=== PATIENT | female | born 1950 | race Caucasian/White ===

== ENCOUNTER 2021-06-15 08:43 | Inpatient (IN) | payer MEDICARE, OTHER, SELFPAY ==
[2021-06-15] VITALS (12 sets, daily range): BP systolic 129–161; BP diastolic 72–85; PULSE 71–90; RESP 16–24; TEMP 36.6–37; O2SAT 84–100; BMI 28.3; BMI 28.2
--- NOTE | 2021-06-15 09:00 | ECG_ITS ---
APPROVED REPORT Exam: Resting ECG HR:74 bpm ECG Measurements Heart Rate 74 AXES SD 134 P 50 QRSd 78 QRS -12 QT 402 T 13 QTc 446 Conclusion Normal sinus rhythm Low voltage QRS Cannot rule out Inferior infarct, age undetermined Cannot rule out Anterior infarct, age undetermined Abnormal ECG Electronically signed by : Arnie Mobley MD 06/16/2021 09:50:31
--- NOTE | 2021-06-15 09:15 | HMH.EDGENADL ---
ED Disposition Clinical Impression: Pneumonia due to COVID-19 virus, Elevated troponin Respiratory failure with hypoxia Qualifiers: Chronicity: acute Qualified Code(s): J96.01 - Acute respiratory failure with hypoxia Disposition: Admitted As Inpatient Condition on Discharge: Serious Referrals: Provider,Referral, [Primary Care Provider] - - Critical Care Critical Care Time: No Attestation: On 06/15/21, the high probability of a clinically significant, sudden or life threatening deterioration of the following system(s) required my full and direct attention, intervention and personal management. The time I documented below is in addition to time spent performing reported procedures but includes the following listed in this critical care notation. Medical Decision Making - Rafita Inquiry Pt receiving controlled substance: No Vital Signs: 06/15/21 08:44 06/15/21 09:30 06/15/21 10:30 Temperature 98.6 F Temperature Source Oral Pulse Rate 73 88 Pulse Rate [Left Radial] 80 Respiratory Rate 19 21 23 Blood Pressure 142/79 H 129/83 Blood Pressure [Right Arm] 142/78 H Blood Pressure Mean 109 105 Blood Pressure Mean [Right Arm] 99 Blood Pressure Source [Right Arm] Automatic Cuff Blood Pressure Position [Right Arm] Sitting 02 Sat by Pulse Oximetry 84 L 98 98 Oxygen Delivery Method Nasal Cannula Non-Rebreather Oxygen Flow Rate (LPM) 8 12 06/15/21 11:01 Temperature Temperature Source Pulse Rate 81 Pulse Rate [Left Radial] Respiratory Rate 22 Blood Pressure 161/83 H Blood Pressure [Right Arm] Blood Pressure Mean 109 Blood Pressure Mean [Right Arm] Blood Pressure Source [Right Arm] Blood Pressure Position [Right Arm] 02 Sat by Pulse Oximetry 94 L Oxygen Delivery Method Non-Rebreather Oxygen Flow Rate (LPM) 12 - Lab Data Lab Results 06/15/21 09:05: WBC 10.7, RBC 4.52, Hgb 13.6, Hct 41.8, MCV 92.4, MCH 30.1, MCHC 32.6, RDW 13.3, Plt Count 286, MPV 9.2, Neut % (Auto) 91.8 H, Lymph % (Auto) 3.7 L, [place] % (Auto) 4.2, Eos % (Auto) 0.0 L, Baso % (Auto) 0.2, Neut # (Auto) 9.8 H, Lymph # (Auto) 0.4 L, [place] # (Auto) 0.5, Eos # (Auto) 0.0, Baso # (Auto) 0.0, Total Counted 100, Neutrophils % (Manual) 84 H, Band Neutrophils % 3.0, Lymphocytes % (Manual) 7 L, Monocytes % (Manual) 6, Platelet Estimate Normal, RBC Morphology Normal 06/15/21 09:05: Sodium 138, Potassium 3.9, Chloride 104, Carbon Dioxide 31 H, Anion Gap 6.9, BUN 19 H, Creatinine 0.60, Estimated Creat Clear 57, Estimated GFR 99, Est GFR ( Amer) 119, Glucose 109 H, Calcium 8.9, Troponin I 0.11 H, C-Reactive Protein 13.8 H 06/15/21 09:05: Lactate 1.3 06/15/21 09:05: ESR 24 06/15/21 09:05: D-Dimer 4.04 H 06/15/21 09:05: Ferritin 216, Procalcitonin 0.093 06/15/21 09:05: Total Bilirubin 0.5, Direct Bilirubin 0.1, Conjugated Bilirubin 0.0, Indirect Bilirubin 0.4, Unconjugated Bilirubin 0.4, AST 66 H, ALT 71, Alkaline Phosphatase 89, Total Protein 6.1 L, Albumin 3.3 L Result diagrams: 06/15/21 09:05 06/15/21 09:05 Orders (Tests/Meds): ED MEDICATIONS Discontinued Medications Generic Name Dose Route Start Last Admin Trade Name Freq PRN Reason Stop Dose Admin Iopamidol 70 ml 06/15/21 10:26 06/15/21 10:27 Iopamidol-370 (76%);100ml Bottle IV 06/15/21 10:27 70 ml ONCE ONE Administration Sodium Chloride 10 ml 06/15/21 10:26 06/15/21 10:27 Sodium Chloride 0.9% 10ml Syr (Rad Only) IV 06/15/21 10:27 10 ml ONCE ONE Administration ORDERS Category Date Time Status Troponin I Q3H Lab 06/15/21 12:30 Ordered Troponin I Q3H Lab 06/15/21 15:30 Ordered Blood Culture Stat Micro 06/15/21 09:05 Received - Radiology Data #1 Image(s): Chest Image Reviewed: Yes I reviewed the patient's radiology image, Yes I have reviewed radiologist's interpretation PROCEDURE: XR CHEST PORTABLE CLINICAL HISTORY: soa COMPARISON: No exams were available for comparison FINDINGS: The cardiomediastin
--- NOTE | 2021-06-15 09:21 | PC.NURSE ---
Addendum entered by Eugneia Hubbard RN 06/15/21 09:40: PT was changed from 15 L NB to 12 L NB not NC, sat continue on 98 Original Note: Pt arrived on 8 L NC from home sat of 84. Pt placed on wall oxygen at 4 L NC and continued sats of 84, increased to 8 L NC with sats of 88, pt placed on NB at that time, sat increased to 98. Continued on NB for 5 minutes to recover and then changed back to 12 L NC with sats of 98. Pt tolerated well and denies any issues at this time. Family updated about pt status MD at
--- NOTE | 2021-06-15 09:23 | PC.NURSE ---
ANDRAE MORELAND at
--- NOTE | 2021-06-15 09:25 | XR_ITS ---
PROCEDURE: XR CHEST PORTABLE CLINICAL HISTORY: soa COMPARISON: No exams were available for comparison FINDINGS: The cardiomediastinal silhouette and pulmonary vascularity are within normal limits. Multifocal bilateral pneumonia noted along with atelectatic changes in the lower lobes. No obvious effusions No acute bony abnormalities. IMPRESSION: Bilateral pneumonia with atelectatic changes consistent with Covid19 pneumonia the Dictated by: Lenard De Jesus MD 06/15/2021 09:48 Lenard De Jesus MD in [facility] 06/15/2021 09:48
--- NOTE | 2021-06-15 09:27 | PC.NURSE ---
Contacted lab for second blood culture order to draw
--- NOTE | 2021-06-15 09:36 | PC.NURSE ---
rad at BS
[2021-06-15 09:38] LABS: Basophils % 0.2 % (0.1-2.0); Hematocrit 41.8 % (37.0-47.0); Hemoglobin 13.6 g/dL (12.2-16.2); Lymphocytes # 0.4 K/mm3 (0.7-4.5); Lymphocytes % 3.7 % (10-50); Mean Corpuscular HGB Conc 32.6 g/dL (31.8-35.4); Mean Corpuscular Hemoglobin 30.1 pg (27.0-31.2); Mean Corpuscular Volume 92.4 fl (81-99); Mean Platelet Volume 9.2 fl (7.4-10.4); Monocytes # 0.5 K/mm3 (0.1-1.0); Monocytes % 4.2 % (1.7-9.3); Neutrophils # 9.8 K/mm3 (1.8-7.8); Neutrophils % 91.8 % (37.0-80.0); Platelet Count 286 K/mm3 (142-424); Red Blood Count 4.52 M/mm3 (4.20-5.40); Red Cell Distribution Width 13.3 % (11.5-17.5); White Blood Count 10.7 K/mm3 (4.8-10.8)
[2021-06-15 09:39] LABS: MANUAL DIFFERENTIAL MANUAL DIFFERENTIAL (MANUAL DIFF)
[2021-06-15 09:49] LABS: Alanine Aminotransferase 71 U/L (12-78); Albumin Level 3.3 g/dl (3.5-5.0); Alkaline Phosphatase 89 U/L (38-126); Aspartate Amino Transferase 66 U/L (14-36); Bilirubin,Direct 0.1 mg/dl (0.0-0.4); Bilirubin,Indirect 0.4 mg/dL (0.0-0.9); Bilirubin,Total 0.5 mg/dl (0.2-1.3); Bilirubin,Unconjugated 0.4 mg/dL (0.0-1.1); Lactic Acid 1.3 mmol/L (0.7-2.1); Total Protein,Serum 6.1 g/dl (6.3-8.2)
[2021-06-15 09:51] LABS: Anion Gap 6.9 mEq/L (5-15); Blood Urea Nitrogen 19 mg/dl (7-17); Calcium 8.9 mg/dl (8.4-10.2); Carbon Dioxide 31 mmol/L (22.0-30.0); Chloride 104 mmol/L (98-107); Creatinine Clearance Estimated 57 mL/min (50-200); Estimated Glomerular Filt Rate 99 ml/min (>60); GFR (African American) 119 ML/MIN (>60); Glucose 109 mg/dl (74-100); Potassium 3.9 mmoL/L (3.5-5.1); Sodium 138 mmol/L (136-145)
[2021-06-15 09:54] LABS: D-Dimer 4.04 ug/mL (0.0-0.5); Lymphocytes % 7 % (10-50); Monocytes % 6 % (2-9); Neutrophils % 84 % (42-76); Platelet Estimate Normal; RBC Morphology Normal; Total Cells Counted 100
[2021-06-15 09:56] LABS: C-Reactive Protein 13.8 mg/L (0-4)
--- NOTE | 2021-06-15 09:57 | PC.NURSE ---
ER speaking with pts family at this time
[2021-06-15 10:02] LABS: Erythrocyte Sedimentation Rate 24 mm/hr (0-30); Troponin I 0.11 ng/ml (0.00-0.034)
[2021-06-15 10:07] LABS: Procalcitonin 0.093 ng/mL (0.0-2.0)
--- NOTE | 2021-06-15 10:10 | CT_ITS ---
PROCEDURE: CT ANGIO CHEST PE PROTOCOL CLINCIAL INDICATION: covid hypoxia r/o PE COMPARISON: CT SPLUMBWO CT lumbar spine wo con from 01/09/2019 CR XR CHEST PORTABLE from 06/15/2021 TECHNIQUE: IV Contrast: 70ML Isovue 370 Axial images obtained with sagittal and coronal reformats. All CT scans at the facility use one or more dose reduction, viz: automated exposure control, ma/kV adjustment per patient size (including targeted exams where dose is matched to indication, i.e. head), or iterative reconstruction technique. FINDINGS: HEART AND MEDIASTINAL STRUCTURES: No evidence of pulmonary embolus, aortic aneurysm, or aortic dissection. There are few small mediastinal and hilar lymph nodes. LUNGS AND PLEURAL SPACES: Diffuse multifocal bilateral areas of ground-glass density with associated consolidation and atelectatic change consistent with Covid19 pneumonia. No evidence of pneumothorax. Trace bilateral effusions. Airspace disease could easily obscure an underlying nodule. No obvious endobronchial lesion. BONY STRUCTURES: Degenerative changes thoracic spine. UPPER ABDOMEN: Unremarkable. ADDITIONAL FINDINGS: Cortical scarring of the left kidney IMPRESSION: No evidence of pulmonary embolus, aortic aneurysm, or aortic dissection. Multifocal bilateral ground-glass infiltrates with scattered areas of consolidation and atelectasis consistent with Covid19 pneumonia with trace bilateral effusions. Dictated by: Lenard De Jesus MD 06/15/2021 10:42 Lenard De Jesus MD in [facility] 06/15/2021 10:42
--- NOTE | 2021-06-15 10:19 | PC.NURSE ---
called [facility] to retrieve medical records. Left voicemail and faxing medical record sheet.
--- NOTE | 2021-06-15 10:40 | PC.NURSE ---
Medical record forms have been sent to [place]
[2021-06-15 10:53] LABS: Ferritin 216 ng/ml (11.1-264)
--- NOTE | 2021-06-15 10:57 | PC.NURSE ---
has been paged
--- NOTE | 2021-06-15 11:21 | PC.NURSE ---
Attempted to get patient to the bathroom by wheelchair. Patient became short of breath so we transferred back to the bed.
--- NOTE | 2021-06-15 11:43 | PC.NURSE ---
notified care management of admission, spoke with Julia
[2021-06-15 12:03] LABS: Influenza A, PCR Not Detected (NotDetected); Influenza B, PCR Not Detected (NotDetected)
--- NOTE | 2021-06-15 12:13 | PC.NURSE ---
Pt decreased to 10 L NB, pt tolerated well, sat 98
[2021-06-15 12:24] LABS: Coronavirus 19, PCR Detected (NotDetected)
--- NOTE | 2021-06-15 12:34 | PC.NURSE ---
Report attempted to call report, nurse unavailable at this time, Territory Manager will have nurse to call back for report
--- NOTE | 2021-06-15 12:40 | PC.NURSE ---
Report called to Brandy PRASAD
--- NOTE | 2021-06-15 13:45 | P.CONPHA_ITS ---
[facility] Pharmacy VTE Monitoring - Patient Demographics Admission date: 06/15/21 Report Date: 06/15/21 Time: 13:45 Allergies/Adverse Reactions: Patient Allergies No Known Allergies Allergy (Verified 01/09/19 12:13) Height: 1.57 m Weight: 69.967 kg Patient Problems: Current Active Problems Pneumonia due to COVID-19 virus (Acute) Respiratory failure with hypoxia (Acute) Elevated troponin (Acute) - VTE Risk Labs: VTE Related Lab Results Hgb 13.6 g/dL (12.2-16.2) 06/15/21 09:05 Hct 41.8 % (37.0-47.0) 06/15/21 09:05 Plt Count 286 K/mm3 (142-424) 06/15/21 09:05 BUN 19 mg/dl (7-17) H 06/15/21 09:05 Creatinine 0.60 mg/dl (0.52-1.04) 06/15/21 09:05 Estimated Creat Clear 57 mL/min (50-200) 06/15/21 09:05 VTE Score: 1 - Prophylaxis VTE Prophylaxis Ordered?: Yes Types of VTE Prophylaxis: TEDS Knee High, Pharmacological Location of Applied Device: Bilateral Lower Extremeties Pharmacologic Type: Enoxaparin
[2021-06-15 14:01] LABS: Troponin I 0.12 ng/ml (0.00-0.034)
[2021-06-15 16:48] LABS: Troponin I 0.14 ng/ml (0.00-0.034)
--- NOTE | 2021-06-15 18:20 | HMH.HP ---
*Admission Date: 06/15/21 *Chief complaint: covid pneumonia *History of present illness: Patient states that she has Covid pneumonia, diagnosed on Friday at [facility]. She says that she first started getting chest congestion around 06/02/2021. She has a slight cough. She had increasing dyspnea on exertion. She says she was found to be hypoxic. She says she was kept in the emergency room for several hours had an extensive work-up excluding a CT angiogram of her chest. She says they do not have any beds in the hospital and eventually discharged her home on nasal cannula oxygen 3L and steroids. She says that she called her primary care doctor in [place] after she was discharged from [place] emergency room and they told her to go to the emergency department at [facility], but she says she felt pretty good at that time and did not do so. Since then she says that her pulse ox is dropping precipitously whenever she gets up and walks around. Family has increased FiO2 up to 8 L nasal cannula She is not vaccinated against Covid. She is a non-smoker. She has no chronic medical problems and is not chronically on medication. Workup in the ER included imaging studies FINDINGS: The cardiomediastinal silhouette and pulmonary vascularity are within normal limits. Multifocal bilateral pneumonia noted along with atelectatic changes in the lower lobes. No obvious effusions No acute bony abnormalities. IMPRESSION: Bilateral pneumonia with atelectatic changes consistent with Covid19 pneumonia the Dictated by: Lenard De Jesus MD 06/15/2021 09:48 Lenard De Jesus MD in [facility] 06/15/2021 09:48 - CT Data CT Scan: Chest (CTA) Time Received: 10:[address] Reviewed: Yes: I have viewed the radiologist's interpretation Findings Narrative: PROCEDURE: CT ANGIO CHEST PE PROTOCOL CLINCIAL INDICATION: covid hypoxia r/o PE COMPARISON: CT SPLUMBWO CT lumbar spine wo con from 01/09/2019 CR XR CHEST PORTABLE from 06/15/2021 TECHNIQUE: IV Contrast: 70ML Isovue 370 Axial images obtained with sagittal and coronal reformats. All CT scans at the facility use one or more dose reduction, viz: automated exposure control, ma/kV adjustment per patient size (including targeted exams where dose is matched to indication, i.e. head), or iterative reconstruction technique. FINDINGS: HEART AND MEDIASTINAL STRUCTURES: No evidence of pulmonary embolus, aortic aneurysm, or aortic dissection. There are few small mediastinal and hilar lymph nodes. LUNGS AND PLEURAL SPACES: Diffuse multifocal bilateral areas of ground-glass density with associated consolidation and atelectatic change consistent with Covid19 pneumonia. No evidence of pneumothorax. Trace bilateral effusions. Airspace disease could easily obscure an underlying nodule. No obvious endobronchial lesion. BONY STRUCTURES: Degenerative changes thoracic spine. UPPER ABDOMEN: Unremarkable. ADDITIONAL FINDINGS: Cortical scarring of the left kidney IMPRESSION: No evidence of pulmonary embolus, aortic aneurysm, or aortic dissection. Multifocal bilateral ground-glass infiltrates with scattered areas of consolidation and atelectasis consistent with Covid19 pneumonia with trace bilateral effusions. She is admitted for further evaluation and treatment [facility] History Medical History: Denies:: Cancer, Diabetes Mellitus Type 1, Diabetes Mellitus Type 2, MRSA *Have you ever received a pneumonia vaccine?: No *Have you received a flu vaccine this season?: No Other Surgeries: Yes: Hysterectomy-Total Amputation: No Fractures: No - *Social History Last grade of school completed: GED Smoking Status: Never smoker Alcohol Intake: never *Occupational Status:: retired Housing: house Household Members: spouse *Travel in the last 8 weeks: None Family Hx:: Unable to obtain Review of Systems - Constitutional Reports lack of energy, Reports malaise - Eyes
--- NOTE | 2021-06-15 18:22 | PC.NURSE ---
PT IS RESTING IN BED. PT STATES SHE IS STARTING TO FEEL BETTER AND SEEMS TO THINK SHE CAN GO HOME TOMORROW. PT'S DAUGHTER CALLED AND STATED SHE WANTED PT TO BE COVID TESTED DAILY WHILE IN THE HOSPITAL. PT'S DAUGHTER WAS EDUCATED ON THE REASONS OF WHY WE DO NOT TEST DAILY AND WAS TOLD THAT PT COULD BE POSITIVE FOR COVID FOR SEVERAL WEEKS. DAUGHTER STATED SHE IS AWARE OF EVERYTHING AND STILL WAS WANTING HER MOTHER TESTED DAILY (AVICULTURIST NOTIFIED OF DAUGHTER'S REQUEST). SINCE PT HAS ARRIVED TO THE FLOOR SHE STATES THIS PLACE FEELS LIKE A DETENTION AND DOES NOT UNDERSTAND WHY FAMILY CANNOT BE HERE WITH HER. PT HAS BEEN UP AMBULATING TO THE BATHROOM AND IN THE ROOM ON 6 L NC. O2 SATURATION MAINTAINS 95-98% WHILE PT IS RESTING. PT WILL DESAT TO 85-88% WHEN UP AMBULATING. LUNG SOUNDS DIMINISHED WITH BILATERAL CRACKLES. ABDOMEN SOFT WITH SOME MILD LLQ TENDERNESS. VSS. WILL CONTINUE TO MONITOR.
[2021-06-16] VITALS: BP 130/75; PULSE 90; TEMP 36.7; O2SAT 92
[2021-06-16 01:43] VITALS: O2SAT 97
--- NOTE | 2021-06-16 03:07 | PC.NURSE ---
A&OX4. TOLERATING 6LNC WELL. O2 SAT IN UPPER 90S WHILE SLEEPING AND LYING IN BED. PT WILL DE-SAT TO MID 80S UPON AMBULATION BUT QUICKLY RECOVERS. PT DOES HAVE INTERMITTENT DRY COUGH. PT DOES SEEM TO BE VERY ANXIOUS. PRN SLEEPING PILL WAS PROVIDED, TOLERATED WELL. PT HAS BEEN RESTING SINCE ADMINISTRATION. PT DOES WELL WITH STANDBY ASSIST TO BATHROOM. VSS WILL CONTINUE TO MONITOR.
[2021-06-16 05:49] VITALS: BP 130/68; PULSE 75; RESP 16; TEMP 37; O2SAT 95; BMI 29.2
[2021-06-16 07:31] LABS: Alanine Aminotransferase 58 U/L (12-78); Albumin Level 2.9 g/dl (3.5-5.0); Albumin/Globulin Ratio 1.2 (1.1-1.8); Alkaline Phosphatase 89 U/L (38-126); Anion Gap 5.9 mEq/L (5-15); Aspartate Amino Transferase 51 U/L (14-36); Bilirubin,Total 0.4 mg/dl (0.2-1.3); Blood Urea Nitrogen 19 mg/dl (7-17); Calcium 8.2 mg/dl (8.4-10.2); Carbon Dioxide 30 mmol/L (22.0-30.0); Chloride 105 mmol/L (98-107); Creatinine Clearance Estimated 59 mL/min (50-200); Estimated Glomerular Filt Rate 122 ml/min (>60); GFR (African American) 147 ML/MIN (>60); Globulin 2.5 g/dL (1.3-3.2); Glucose 85 mg/dl (74-100); Potassium 3.9 mmoL/L (3.5-5.1); Sodium 137 mmol/L (136-145); Total Protein,Serum 5.4 g/dl (6.3-8.2)
[2021-06-16 08:00] VITALS: BP 131/73; PULSE 82; RESP 20; TEMP 36.7; O2SAT 84; O2SAT 94; O2SAT 99
--- NOTE | 2021-06-16 11:23 | XR_ITS ---
PROCEDURE INFORMATION: Exam: XR Chest Exam date and time: 06/16/2021 11:23 AM Age: 71 years old Clinical indication: Condition or disease; Patient HX: SOA; Covid TECHNIQUE: Imaging protocol: XR of the chest. Views: 1 view. COMPARISON: CR XR CHEST PORTABLE 06/15/2021 9:35 AM FINDINGS: Lungs: diffuse interstitial and alveolar airspace disease left lung greater than right. Pneumonia versus cardiogenic or noncardiogenic edema versus other alveolar filling process. Correlate. Pleural spaces: Unremarkable. No pleural effusion. No pneumothorax. Heart/Mediastinum: Unremarkable. No cardiomegaly. Bones/joints: Unremarkable. IMPRESSION: Diffuse interstitial and alveolar airspace disease left lung greater than right. Pneumonia versus cardiogenic or noncardiogenic edema versus other alveolar filling process. Correlate.
[2021-06-16 12:57] LABS: Chloride 106 mmol/L (98-107); Sodium 139 mmol/L (136-145)
[2021-06-16 12:58] LABS: Potassium 3.9 mmoL/L (3.5-5.1)
[2021-06-16 13:00] LABS: Alanine Aminotransferase 59 U/L (12-78); Albumin/Globulin Ratio 1.2 (1.1-1.8); Alkaline Phosphatase 98 U/L (38-126); Anion Gap 11.9 mEq/L (5-15); Aspartate Amino Transferase 54 U/L (14-36); Bilirubin,Total 0.4 mg/dl (0.2-1.3); Blood Urea Nitrogen 18 mg/dl (7-17); Calcium 8.2 mg/dl (8.4-10.2); Carbon Dioxide 25 mmol/L (22.0-30.0); Creatinine Clearance Estimated 59 mL/min (50-200); Estimated Glomerular Filt Rate 99 ml/min (>60); GFR (African American) 119 ML/MIN (>60); Globulin 2.6 g/dL (1.3-3.2); Glucose 125 mg/dl (74-100); Total Protein,Serum 5.6 g/dl (6.3-8.2)
[2021-06-16 13:01] LABS: Basophils % 0.3 % (0.1-2.0); Eosinophils # 0.1 K/mm3 (0.0-0.4); Eosinophils % 0.9 % (0.1-12.0); Hematocrit 39.4 % (37.0-47.0); Hemoglobin 12.8 g/dL (12.2-16.2); Lymphocytes # 0.3 K/mm3 (0.7-4.5); Mean Corpuscular HGB Conc 32.5 g/dL (31.8-35.4); Mean Corpuscular Volume 92.1 fl (81-99); Mean Platelet Volume 9.5 fl (7.4-10.4); Monocytes # 0.2 K/mm3 (0.1-1.0); Monocytes % 2.6 % (1.7-9.3); Neutrophils # 7.4 K/mm3 (1.8-7.8); Platelet Count 234 K/mm3 (142-424); Red Blood Count 4.28 M/mm3 (4.20-5.40); Red Cell Distribution Width 13.3 % (11.5-17.5)
--- NOTE | 2021-06-16 13:06 | P.PN_ITS ---
Internal Medicine - PN: Subj *Date: 06/16/21 *Time: 13:06 Interval history: Patient is feeling better, no significant turns during the night. 6 L she is 93 to 94%. He does desaturate with exertion. Globally she feels like she is responding, would like to stay another day. She is equipped with oxygen at home, was previously seen at [facility] in [place]. I reviewed her film, ideology report is pending. She has patchy infiltrative process appears to be less dense. Crackles in both mid abdul are also less dense so the patterns consistent. She slept well with the Ambien last night. CTA was negative for pulmonary embolism Exam Vital signs and Labs for Last 24 Hours: Temp Pulse Resp BP Pulse Ox 98.1 F 82 20 131/73 94 L 06/16/21 08:00 06/16/21 08:00 06/16/21 08:00 06/16/21 08:00 06/16/21 08:00 Laboratory Results - last 24 hr 06/15/21 12:47: Troponin I 0.12 H 06/15/21 15:30: Troponin I 0.14 H 06/16/21 06:44: Sodium 137, Potassium 3.9, Chloride 105, Carbon Dioxide 30, Anion Gap 5.9, BUN 19 H, Creatinine 0.50 L, Estimated Creat Clear 59, Estimated GFR 122, Est GFR ( Amer) 147 D, Glucose 85 D, Calcium 8.2 L, Total Bilirubin 0.4, AST 51 H, ALT 58, Alkaline Phosphatase 89, Total Protein 5.4 L, Albumin 2.9 L D, Globulin 2.5, Albumin/Globulin Ratio 1.2 06/16/21 12:29: Sodium 139, Potassium 3.9, Chloride 106 I & O for Last 24 hours: Intake & Output 06/13/21 06/14/21 06/15/21 06/16/21 23:59 23:59 23:59 23:59 Intake Total 240 / 240 Balance 240 / 240 Weight 154 lb 4 oz 159 lb - Constitutional no acute distress - *Routine HEENT Exam Head: Present: normocephalic Eye: Present: EOMI, PERRL ENT: Present: mucous membranes moist - *Routine Neck Exam Present: supple. Absent: lymphadenopathy - *Routine Respiratory Exam Present: crackles. Absent: accessory muscle use, rhonchi, wheezes, diminished air movement - *Routine Cardiovascular Exam Present: RRR - *Routine Abdominal Exam Present: soft, normoactive bowel sounds. Absent: tenderness - *Routine Extremities Exam Absent: cyanosis, clubbing, edema - *Routine Skin Exam Present: warm. Absent: rash - *Routine Neurological Exam Present: alert, oriented X3 Assessment and Plan (1) Elevated troponin Status: Acute Category: Medical Code(s): R77.8 - Other specified abnormalities of plasma proteins (2) Pneumonia due to COVID-19 virus Status: Acute Category: Medical Code(s): U07.1 - COVID-19; J12.82 - Pneumonia due to coronavirus disease 2019 (3) Respiratory failure with hypoxia Status: Acute Qualifiers: Chronicity: acute Qualified Code(s): J96.01 - Acute respiratory failure with hypoxia Category: Medical Code(s): J96.91 - Respiratory failure, unspecified with hypoxia - Assessment and plan all Dx Assessment and Plan for all problems:: Continue current regimen. Will wean down O2 today. Chart for further orders
[2021-06-16 13:12] LABS: MANUAL DIFFERENTIAL MANUAL DIFFERENTIAL (MANUAL DIFF)
[2021-06-16 13:23] LABS: Lymphocytes % 15 % (10-50); Monocytes % 4 % (2-9); Neutrophils % 81 % (42-76); Platelet Estimate Normal; RBC Morphology Normal; Total Cells Counted 100
[2021-06-16 16:00] VITALS: BP 134/88; PULSE 90; RESP 18; TEMP 37; O2SAT 93
[2021-06-16 20:00] VITALS: BP 143/83; PULSE 76; RESP 19; TEMP 36.7; O2SAT 94
--- NOTE | 2021-06-16 20:19 | PC.NURSE ---
Pt very anxious to leave and states she plans to tomorrow. Dr. stover aware of this. Have educated pt of need for staying in hospital at this time. Have educated pt that there are not allowed to be visitors with covid. Have encouraged pt to prone and have educated on use of IS, which is at bedside and pt has been using. Pt is on 5 L NC at this time and sats are 95% at this time.
[2021-06-17] VITALS: BP 139/80; PULSE 77; RESP 18; TEMP 36.7; O2SAT 91
--- NOTE | 2021-06-17 01:33 | PC.NURSE ---
Pts O2 titrated back up to 6L at this time.
[2021-06-17 04:00] VITALS: BP 150/76; PULSE 76; RESP 18; TEMP 37.3; O2SAT 93
--- NOTE | 2021-06-17 04:13 | PC.NURSE ---
Respiratory paged due to patient desating to low 80's on 6L NC.
[2021-06-17 04:42] VITALS: BMI 29.2
--- NOTE | 2021-06-17 05:37 | PC.NURSE ---
Respiratory came and placed pt on 15L high flow oxygen O2 at 97% at this time.
[2021-06-17 07:10] LABS: Alanine Aminotransferase 47 U/L (12-78); Albumin Level 2.7 g/dl (3.5-5.0); Alkaline Phosphatase 95 U/L (38-126); Anion Gap 5.7 mEq/L (5-15); Aspartate Amino Transferase 39 U/L (14-36); Bilirubin,Total 0.4 mg/dl (0.2-1.3); Blood Urea Nitrogen 15 mg/dl (7-17); Carbon Dioxide 28 mmol/L (22.0-30.0); Chloride 104 mmol/L (98-107); Creatinine Clearance Estimated 59 mL/min (50-200); Estimated Glomerular Filt Rate 99 ml/min (>60); GFR (African American) 119 ML/MIN (>60); Globulin 2.6 g/dL (1.3-3.2); Glucose 80 mg/dl (74-100); Potassium 3.7 mmoL/L (3.5-5.1); Sodium 134 mmol/L (136-145); Total Protein,Serum 5.3 g/dl (6.3-8.2)
[2021-06-17 08:00] VITALS: BP 148/68; PULSE 105; RESP 17; TEMP 37.2; O2SAT 93
--- NOTE | 2021-06-17 09:17 | PC.NURSE ---
spoke with provider MD Viola regarding patient's want to leave against medical advice stating she has oxygen at home and does not want to be here. RN spoke with patient's family regarding treatment plan- ambulating as tolerated, aggressively attempting to wean oxygen as tolerated, use and education of incentive spirometer to prevent atelectasis as well as worsening pneumonia. RN entered patients room and discussed her want to leave, educated patient on leaving AMA and how Viola and RN believe the patient is not an appropriate candidate for discharge to home due to oxygen requirements. Patient questioned whether it would be safe to go home , RN instructed patient that it is unadvisable for her to leave as well as unsafe. RN requested for patient to ambulate in room and sit into the chair, patient repeatedly refused. Patient refused to lay prone. Patient refused to use incentive spirometer. Level of care escalated to MD.
--- NOTE | 2021-06-17 10:43 | XR_ITS ---
PROCEDURE INFORMATION: Exam: XR Chest Exam date and time: 06/17/2021 10:43 AM Age: 71 years old Clinical indication: Shortness of breath and other: Covid positive TECHNIQUE: Imaging protocol: XR of the chest. Views: 1 view. COMPARISON: CR XR CHEST PORTABLE 06/16/2021 11:38 AM FINDINGS: Lungs: Similar bilateral airspace opacities. Pleural spaces: Unremarkable. No pleural effusion. No pneumothorax. Heart/Mediastinum: Unremarkable. No cardiomegaly. Bones/joints: Unremarkable. IMPRESSION: Similar appearance of multilobar pneumonia.
--- NOTE | 2021-06-17 10:49 | INFXCTL.NOTE ---
Patient continues to be noncompliant with treatment. Patient is being rounded on hourly. RN request with each entry for patient to ambulate, patient continues to refuse despite education of benefits. RN requests for patient to continue use of incentive spirometer. Patient refuses to maintain IV access, RN stated she would give patient a break and would attempt to gain new access so that patient can receive medications needed for her medical recovery. Patient educated on benefits of laying prone, education on repositioning was reinforced
[2021-06-17 12:00] VITALS: BP 167/87; PULSE 82; RESP 18; TEMP 36.6; O2SAT 91
--- NOTE | 2021-06-17 12:13 | HMH.ACPN2 ---
Internal Medicine - PN: Subj *Date: 06/17/21 *Time: 12:13 Interval history: Spoke to nursing staff and respiratory. Desaturated to chris of 84 pct Varying now 84-94 pct 02 requirements anastacio to 15 lpm, now back to 12 CXR from today reviewed. Changes c/w covid pneumonia and w/o signif change. Continues on azith/roceph/olumiant/remdesivir/dex BC=0 growth Has not been compliant with proning or getting out of bed despite instruction from the nursing staff. Exam Vital signs and Labs for Last 24 Hours: Temp Pulse Resp BP Pulse Ox 99.0 F 105 H 17 148/68 H 93 L 06/17/21 08:00 06/17/21 08:00 06/17/21 08:00 06/17/21 08:00 06/17/21 08:00 Laboratory Results - last 24 hr 06/16/21 12:29: WBC 8.0 D, RBC 4.28, Hgb 12.8, Hct 39.4, MCV 92.1, MCH 30.0, MCHC 32.5, RDW 13.3, Plt Count 234, MPV 9.5, Neut % (Auto) 93.0 H, Lymph % (Auto) 3.0 L, [place] % (Auto) 2.6, Eos % (Auto) 0.9, Baso % (Auto) 0.3, Neut # (Auto) 7.4, Lymph # (Auto) 0.3 L, [place] # (Auto) 0.2, Eos # (Auto) 0.1, Baso # (Auto) 0.0, Total Counted 100, Neutrophils % (Manual) 81 H, Lymphocytes % (Manual) 15, Monocytes % (Manual) 4, Platelet Estimate Normal, RBC Morphology Normal 06/16/21 12:29: Sodium 139, Potassium 3.9, Chloride 106, Carbon Dioxide 25, Anion Gap 11.9, BUN 18 H, Creatinine 0.60, Estimated Creat Clear 59, Estimated GFR 99, Est GFR ( Amer) 119, Glucose 125 H D, Calcium 8.2 L, Total Bilirubin 0.4, AST 54 H, ALT 59, Alkaline Phosphatase 98, Total Protein 5.6 L, Albumin 3.0 L, Globulin 2.6, Albumin/Globulin Ratio 1.2 06/17/21 06:44: Sodium 134 L, Potassium 3.7, Chloride 104, Carbon Dioxide 28, Anion Gap 5.7, BUN 15, Creatinine 0.60, Estimated Creat Clear 59, Estimated GFR 99, Est GFR ( Amer) 119, Glucose 80 D, Calcium 8.0 L, Total Bilirubin 0.4, AST 39 H D, ALT 47, Alkaline Phosphatase 95, Total Protein 5.3 L, Albumin 2.7 L, Globulin 2.6, Albumin/Globulin Ratio 1.0 L I & O for Last 24 hours: Intake & Output 06/14/21 06/15/21 06/16/21 06/17/21 23:59 23:59 23:59 23:59 Intake Total 480 / 480 Output Total 670 / 670 Balance -190 / -190 Weight 154 lb 4 oz 159 lb 159 lb Microbiology Reports for the Last 24 Hours: Microbiology 06/15/21 09:05 Blood Blood Culture - Preliminary NO GROWTH AFTER 48 HOURS 06/15/21 09:41 Blood Blood Culture - Preliminary NO GROWTH AFTER 48 HOURS 06/16/21 15:52 Sputum - Expectorated Sputum Gram Stain - Final 06/16/21 15:52 Sputum - Expectorated Sputum Sputum Culture - Preliminary - Constitutional no acute distress, agitated - *Routine HEENT Exam Head: Present: normocephalic Eye: Present: EOMI, PERRL ENT: Present: mucous membranes moist - *Routine Neck Exam Present: supple. Absent: lymphadenopathy - *Routine Respiratory Exam Present: crackles. Absent: accessory muscle use, respiratory distress - *Routine Cardiovascular Exam Present: RRR - *Routine Abdominal Exam Present: soft, normoactive bowel sounds. Absent: tenderness - *Routine Extremities Exam Absent: cyanosis, clubbing, edema - *Routine Skin Exam Present: warm. Absent: rash - *Routine Neurological Exam Present: alert, oriented X3 Assessment and Plan (1) Elevated troponin Status: Acute Category: Medical Code(s): R77.8 - Other specified abnormalities of plasma proteins (2) Pneumonia due to COVID-19 virus Status: Acute Category: Medical Code(s): U07.1 - COVID-19; J12.82 - Pneumonia due to coronavirus disease 2019 (3) Respiratory failure with hypoxia Status: Acute Qualifiers: Chronicity: acute Qualified Code(s): J96.01 - Acute respiratory failure with hypoxia Category: Medical Code(s): J96.91 - Respiratory failure, unspecified with hypoxia - Assessment and plan all Dx Assessment and Plan for all problems:: continue current regimen will increase 02 delivery as indicated
[2021-06-17 16:00] VITALS: BP 130/66; PULSE 81; RESP 16; TEMP 37.1; O2SAT 91
[2021-06-17 20:00] VITALS: BP 130/74; PULSE 81; RESP 17; TEMP 36.7; O2SAT 90
[2021-06-18] VITALS (10 sets, daily range): BP systolic 112–150; BP diastolic 54–76; PULSE 66–89; RESP 16–24; TEMP 36.4–37.1; O2SAT 89–97; BMI 29.2
--- NOTE | 2021-06-18 06:00 | XR_ITS ---
PROCEDURE INFORMATION: Exam: XR Chest Exam date and time: 06/18/2021 6:00 AM Age: 71 years old Clinical indication: Shortness of breath and other: Covid TECHNIQUE: Imaging protocol: XR of the chest. Views: 1 view. COMPARISON: CR XR CHEST PORTABLE 06/17/2021 11:05 AM FINDINGS: Lungs: Patchy bilateral airspace disease is noted more prominent on the left. Pleural spaces: Unremarkable. No pleural effusion. No pneumothorax. Heart/Mediastinum: Unremarkable. No cardiomegaly. Bones/joints: Unremarkable. IMPRESSION: Patchy bilateral airspace disease more prominent on the left not significantly changed.
[2021-06-18 07:30] LABS: Alanine Aminotransferase 41 U/L (12-78); Albumin Level 2.7 g/dl (3.5-5.0); Albumin/Globulin Ratio 1.1 (1.1-1.8); Alkaline Phosphatase 82 U/L (38-126); Anion Gap 5.9 mEq/L (5-15); Aspartate Amino Transferase 45 U/L (14-36); Bilirubin,Total 1.2 mg/dl (0.2-1.3); Blood Urea Nitrogen 19 mg/dl (7-17); Calcium 8.1 mg/dl (8.4-10.2); Carbon Dioxide 27 mmol/L (22.0-30.0); Chloride 104 mmol/L (98-107); Creatinine Clearance Estimated 59 mL/min (50-200); Estimated Glomerular Filt Rate 122 ml/min (>60); GFR (African American) 147 ML/MIN (>60); Globulin 2.5 g/dL (1.3-3.2); Glucose 93 mg/dl (74-100); Potassium 3.9 mmoL/L (3.5-5.1); Sodium 133 mmol/L (136-145); Total Protein,Serum 5.2 g/dl (6.3-8.2)
--- NOTE | 2021-06-18 08:38 | CA_ITS ---
APPROVED REPORT EXAM: Comprehensive 2D, Doppler, and color-flow Echocardiogram Director Supply Chain: Minoo Lemons RDCS Ht: 5 ft 8 in Wt: 158lbs BSA: 1.85 BP: 148/68 mmHg Indications: ELEVATED TROP, COVID PNEUMONIA,ACUTE RESP FAILURE M-Mode Dimensions RVDd 1.81 cm (0.9-2.6) LA Diam 3.58 cm (1.9-4.0) LVDd 4.81 cm (3.5-5.7) Ao Diam 3.17 cm (2.0-3.7) LVDs 3.34 cm (3.5-5.7) IVSd 0.53 cm (0.6-1.1) PWd 0.62 cm (0.6-1.1) EF (Teich) 58.00% FS 30.60% EDV (Teich) 108.00 mL ESV (Teich) 45.40 mL LV Diastology E Decel Time 147.00 (160-240 msec) E/A Ratio 0.9 MED E' 8.30 (< 7 cm/sec) E'/MED E' Ratio 6.29 (>14) LAT E' 9.90 (<10 cm/sec) E/LAT E' Ratio 5.27 (>14) Mitral Valve MV E Max Frandy. 52.00 (40-130 cm/s) MV A Velocity 61.00 (40-130 cm/s) E/A Ratio 0.85 MV Decel. Time 147.00 (160-240 ms) MV PHT 43.00 ms Tricuspid Valve TR P. Velocity 332.00 cm/s RAP Estimate 10.00 mmHg RVSP 54.00 mmHg Left Ventricle Left atrium is moderately enlarged, left ventricle is normal size, mild concentric left ventricular hypertrophy, visually estimated ejection fraction 55% with no regional wall motion abnormality, grade 1 diastolic dysfunction seen without tissue Doppler evidence of raise left atrial pressure. Right Ventricle Right atrium and right ventricle are qualitatively moderately enlarged with normal contractility. Aortic Valve Aortic valve is minimally thickened and fibrosed, there is no aortic stenosis or aortic insufficiency. Mitral Valve Mitral valve grossly normal, there is trace mitral regurgitation. Tricuspid Valve Tricuspid valve is grossly normal, there is moderate tricuspid regurgitation, calculated right ventricular systolic pressure is 54 mmHg. Pulmonic Valve Pulmonic valve is poorly visualized. Great Vessels Aortic root is normal size. Inferior vena cava is normal size with normal inspiratory collapse. Pericardium No significant pericardial effusion noted. Conclusion 1. Biatrial enlargement, normal left ventricular size, mild concentric left ventricular hypertrophy, visually estimated ejection fraction 55% with no regional wall motion abnormality, grade 1 diastolic dysfunction seen without tissue Doppler evidence of raise left atrial pressure. 2. Enlarged right ventricle with normal contractility. 3. Trace mitral and moderate tricuspid regurgitation, calculated right ventricular systolic pressure 54 mmHg. 4. No significant pericardial effusion noted. 5. Inferior vena cava is normal size with normal inspiratory collapse. Electronically signed by : Guy Schafer MD 06/18/2021 10:12:33
--- NOTE | 2021-06-18 09:46 | P.PN_ITS ---
Internal Medicine - PN: Subj *Date: 06/18/21 *Time: 09:15 Interval history: pt laying in bed states she is feeling well. Exam Vital signs and Labs for Last 24 Hours: Temp Pulse Resp BP Pulse Ox 97.9 F 82 24 124/67 90 L 06/18/21 08:10 06/18/21 08:10 06/18/21 08:10 06/18/21 08:10 06/18/21 08:10 Laboratory Results - last 24 hr 06/18/21 06:25: Sodium 133 L, Potassium 3.9, Chloride 104, Carbon Dioxide 27, Anion Gap 5.9, BUN 19 H D, Creatinine 0.50 L, Estimated Creat Clear 59, Estimated GFR 122, Est GFR ( Amer) 147 D, Glucose 93, Calcium 8.1 L, Total Bilirubin 1.2, AST 45 H, ALT 41, Alkaline Phosphatase 82, Total Protein 5.2 L, Albumin 2.7 L, Globulin 2.5, Albumin/Globulin Ratio 1.1 I & O for Last 24 hours: Intake & Output 06/15/21 06/16/21 06/17/21 06/18/21 11:59 11:59 11:59 11:59 Intake Total 240 / 240 720 / 720 720 / 720 Output Total 1070 / 1070 600 / 600 Balance 240 / 240 -350 / -350 120 / 120 Weight 155 lb 159 lb 159 lb 158 lb 11.725 oz Microbiology Reports for the Last 24 Hours: Microbiology 06/15/21 09:05 Blood Blood Culture - Preliminary NO GROWTH AFTER 48 HOURS 06/15/21 09:41 Blood Blood Culture - Preliminary NO GROWTH AFTER 48 HOURS 06/16/21 15:52 Sputum - Expectorated Sputum Gram Stain - Final 06/16/21 15:52 Sputum - Expectorated Sputum Sputum Culture - Preliminary - Constitutional no acute distress - *Routine HEENT Exam Head: Present: normocephalic Eye: Present: PERRL ENT: Present: mucous membranes moist - *Routine Neck Exam Present: supple. Absent: lymphadenopathy - *Routine Respiratory Exam Present: decreased breath sounds, rhonchi - *Routine Cardiovascular Exam Present: RRR - *Routine Abdominal Exam Present: soft, normoactive bowel sounds. Absent: tenderness - *Routine Extremities Exam Absent: cyanosis, clubbing, edema - *Routine Skin Exam Present: warm. Absent: rash - *Routine Neurological Exam Present: alert, oriented X3 Assessment and Plan (1) Elevated troponin Status: Acute Category: Medical Code(s): R77.8 - Other specified abnormalities of plasma proteins (2) Pneumonia due to COVID-19 virus Status: Acute Category: Medical Code(s): U07.1 - COVID-19; J12.82 - Pneu monia due to coronavirus disease 2019 (3) Respiratory failure with hypoxia Status: Acute Qualifiers: Chronicity: acute Qualified Code(s): J96.01 - Acute respiratory failure with hypoxia Category: Medical Code(s): J96.91 - Respiratory failure, unspecified with hypoxia - Assessment and plan all Dx Assessment and Plan for all problems:: rounded with dr stover all orders per dr stover consult cardiology- elevated trop pulm consult
--- NOTE | 2021-06-18 11:01 | HMH.CNCARD ---
History of Present Illness Consult date: 06/18/21 Requesting physician: Tomi Rod Consult reason: shortness of breath Chief complaint: Covid and elevated troponins History of present illness: 71-year-old female admitted to [facility] on 06/15/2021 with Covid PNA. Patient is under Covid precautions. Patient states a few days ago she was admitted to [facility] and was diagnosed with Covid at that time. States she had been feeling well for the past few days until New '[facility] [place]. Patient states she began to have worsening shortness of breath accompanied with productive cough. Patient states [facility] told her to go to [facility] where she could be admitted due to her Covid. Patient states on her traveling to [facility], she began to feel worse with shortness?breath and therefore she felt she needed to come to the emergency room. Patient denies any history of coronary disease. Cardiology was consulted due to elevated troponins x2. Patient was also noted to have an elevated D-dimer. CTA of the chest revealed no evidence of pulmonary emboli or aortic aneurysm or dissection. CTA of the chest did reveal multifocal bilateral groundglass infiltrates and scattered areas of consolidation consistent with COVID-19 pneumonia with trace bilateral effusions. Patient is requiring oxygen at this time. Patient denies chest pain, tightness or pressure. Patient states her shortness of breath is slightly better. Patient is a non-smoker. Patient states she does have history of hypertension. Patient denies any further echo history. Patient denies palpitations or dizziness. Patient does deny fevers. Patient denies swelling of the lower extremities. We will obtain echocardiogram to assess LV function and valve status. Will defer further cardiac testing at this time. Elevated troponins may be caused by ischemic demand due to Covid. Please notify cardiology of any changes in patient status. Echocardiogram reveals EF 55% with no regional wall motion abnormality, grade 1 diastolic dysfunction. Trace MR and moderate TR noted. Vital signs are stable. court monitor reveals sinus rhythm with no ectopy with a heart rate of 76 bpm. CTA of Chest:IMPRESSION: No evidence of pulmonary embolus, aortic aneurysm, or aortic dissection. Multifocal bilateral ground-glass infiltrates with scattered areas of consolidation and atelectasis consistent with Covid19 pneumonia with trace bilateral effusions. Echo:Conclusion 1. Biatrial enlargement, normal left ventricular size, mild concentric left ventricular hypertrophy, visually estimated ejection fraction 55% with no regional wall motion abnormality, grade 1 diastolic dysfunction seen without tissue Doppler evidence of raise left atrial pressure. 2. Enlarged right ventricle with normal contractility. 3. Trace mitral and moderate tricuspid regurgitation, calculated right ventricular systolic pressure 54 mmHg. 4. No significant pericardial effusion noted. 5. Inferior vena cava is normal size with normal inspiratory collapse. [facility] History I have reviewed the patient's past medical history: Yes Medical History: Denies:: Cancer, Diabetes Mellitus Type 1, Diabetes Mellitus Type 2, MRSA *Have you ever received a pneumonia vaccine?: No *Have you received a flu vaccine this season?: No Other Surgeries: Yes: Hysterectomy-Total Amputation: No Fractures: No - *Social History Last grade of school completed: GED Smoking Status: Never smoker Alcohol Intake: never *Occupational Status:: retired Housing: house Household Members: spouse *Travel in the last 8 weeks: None Family Hx:: Unable to obtain Meds Home Medications Medication Instructions Recorded Confirmed Type No Known Home Medications 06/15/21 06/15/21 History Allergies Allergy/AdvReac Type Severity Reaction Status Date / Time No Known Allergies Allergy V
--- NOTE | 2021-06-18 11:32 | HMH.PULMCON ---
*Admission Date: 06/15/21 *Reason for consult:: Acute hypoxic respiratory failure, COVID-19 pneumonia *History of present illness: Ms. Crisostomo is a 76-year-old female never smoker, no prior respiratory complaints, not yet vaccinated for COVID-19 pneumonia presented to the hospital with worsening respiratory status and found to be having COVID-19 pneumonia and pulmonary was called for further management. [facility] History Medical History: Denies:: Cancer, Diabetes Mellitus Type 1, Diabetes Mellitus Type 2, MRSA *Have you ever received a pneumonia vaccine?: No *Have you received a flu vaccine this season?: No Other Surgeries: Yes: Hysterectomy-Total Amputation: No Fractures: No - *Social History Last grade of school completed: GED Smoking Status: Never smoker Alcohol Intake: never *Occupational Status:: retired Housing: house Household Members: spouse *Travel in the last 8 weeks: None Family Hx:: Unable to obtain ROS - Cons Reports anorexia, Reports body ache(s), Denies chills - ENT Denies bleeding gums - Card Reports shortness of breath, Reports shortness of breath with activity - Resp Respiratory: Reports shortness of breath, Reports chest congestion, Reports cough, Reports dyspnea on exertion, Denies excessive phlegm production, Reports cough with sputum production - GI Gastrointestingal: Denies: abdominal pain - [place] Musculoskeletal: Denies small joint pain in the hands - Psych Denies thoughts of hurting/killing others, Denies thoughts of hurting/killing yourself Meds Home Medications Medication Instructions Recorded Confirmed Type No Known Home Medications 06/15/21 06/15/21 History Allergies Allergy/AdvReac Type Severity Reaction Status Date / Time No Known Allergies Allergy Verified 01/09/19 12:13 Exam - Constitutional Constitutional:: Present: no acute distress, comfortable - HENMT Exam HENMT: Present: normocephalic, atraumatic - Eye Exam Eyes:: Present: normal appearance both eyes and related structures - Neck Exam Neck:: Present: normal visual inspection - Respiratory Exam Respiratory:: Present: able to speak in complete sentences, no respiratory distress, rales. Absent: accessory muscle use, wheezing - Cardiovascular Exam Cardiac:: Present: S1, S2 - GI Exam GI:: Present: soft, no hepatosplenomegaly - Skin Exam Skin: Present: warm, no rash - Neurological Exam Neurological: Present: alert, awake, normal cognition - Extremities Exam Extremities: Present: no cyanosis, no clubbing, no edema Internal Medicine - CN: Reslt - Labs CBC & Chem 7: 06/16/21 12:29 06/18/21 06:25 Labs: BMP 06/18/21 06:25 Sodium 133 L Potassium 3.9 Chloride 104 Carbon Dioxide 27 BUN 19 H D Creatinine 0.50 L Glucose 93 Calcium 8.1 L Liver Function 06/18/21 Range/Units 06:25 Total Bilirubin 1.2 (0.2-1.3) mg/dl AST 45 H (14-36) U/L ALT 41 (12-78) U/L Alkaline Phosphatase 82 (38-126) U/L Albumin 2.7 L (3.5-5.0) g/dl Assessment and Plan (1) Elevated troponin Status: Acute Category: Medical Code(s): R77.8 - Other specified abnormalities of plasma proteins (2) Pneumonia due to COVID-19 virus Status: Acute Category: Medical Code(s): U07.1 - COVID-19; J12.82 - Pneumonia due to coronavirus disease 2019 (3) Respiratory failure with hypoxia Status: Acute Qualifiers: Chronicity: acute Qualified Code(s): J96.01 - Acute respiratory failure with hypoxia Category: Medical Code(s): J96.91 - Respiratory failure, unspecified with hypoxia - Assessment and plan all Dx Assessment and Plan for all problems:: #Acute hypoxic respiratory failure: #COVID-19 pneumonia: Ms. Crisostomo is a 76-year-old female never smoker, no prior respiratory complaints, not yet vaccinated for COVID-19 pneumonia presented to the hospital with worsening respiratory status and found to be having COVID-19 pneumonia and pulmonary was called for furthe
--- NOTE | 2021-06-18 14:13 | PC.NURSE ---
At 1400 respiratory told patient she needed to prone. Patient agreed
[2021-06-19] VITALS (7 sets, daily range): BP systolic 99–151; BP diastolic 54–91; PULSE 69–84; RESP 16–20; TEMP 36.5–37.1; O2SAT 91–97; BMI 28.4
--- NOTE | 2021-06-19 03:47 | PC.NURSE ---
Addendum entered by Tiffanie Ritter RN 06/19/21 06:18: Patient requested to leave her bed high in the air to be able to see out the window, bed alarm was set for patient's safety. Original Note: Patient has been cooperative with staff. Patient has slept prone thus far in this RN's shift. Patient was turned down to 7LNC at 0330, patient currently maintaining oxygen saturation <90%. Patient is in good spirits.
[2021-06-19 06:30] LABS: Basophils % 0.2 % (0.1-2.0); Eosinophils % 0.2 % (0.1-12.0); Hematocrit 35.5 % (37.0-47.0); Hemoglobin 11.8 g/dL (12.2-16.2); Lymphocytes # 0.4 K/mm3 (0.7-4.5); Lymphocytes % 4.8 % (10-50); Mean Corpuscular HGB Conc 33.3 g/dL (31.8-35.4); Mean Corpuscular Hemoglobin 30.2 pg (27.0-31.2); Mean Corpuscular Volume 90.5 fl (81-99); Mean Platelet Volume 9.6 fl (7.4-10.4); Monocytes # 0.3 K/mm3 (0.1-1.0); Neutrophils # 7.6 K/mm3 (1.8-7.8); Neutrophils % 90.8 % (37.0-80.0); Platelet Count 160 K/mm3 (142-424); Red Blood Count 3.92 M/mm3 (4.20-5.40); Red Cell Distribution Width 13.9 % (11.5-17.5); White Blood Count 8.4 K/mm3 (4.8-10.8)
[2021-06-19 07:07] LABS: Alanine Aminotransferase 32 U/L (12-78); Albumin Level 2.5 g/dl (3.5-5.0); Albumin/Globulin Ratio 1.1 (1.1-1.8); Alkaline Phosphatase 73 U/L (38-126); Anion Gap 6.1 mEq/L (5-15); Aspartate Amino Transferase 29 U/L (14-36); Bilirubin,Total 0.5 mg/dl (0.2-1.3); Blood Urea Nitrogen 19 mg/dl (7-17); Calcium 8.1 mg/dl (8.4-10.2); Carbon Dioxide 29 mmol/L (22.0-30.0); Chloride 104 mmol/L (98-107); Creatinine Clearance Estimated 57 mL/min (50-200); Estimated Glomerular Filt Rate 99 ml/min (>60); GFR (African American) 119 ML/MIN (>60); Globulin 2.3 g/dL (1.3-3.2); Glucose 103 mg/dl (74-100); Potassium 4.1 mmoL/L (3.5-5.1); Sodium 135 mmol/L (136-145); Total Protein,Serum 4.8 g/dl (6.3-8.2)
[2021-06-19 07:09] LABS: MANUAL DIFFERENTIAL MANUAL DIFFERENTIAL (MANUAL DIFF)
[2021-06-19 07:10] LABS: C-Reactive Protein 30.8 mg/L (0-4)
[2021-06-19 08:20] LABS: Lymphocytes % 4 % (10-50); Monocytes % 2 % (2-9); Neutrophils % 94 % (42-76); Platelet Estimate Normal; Total Cells Counted 100
[2021-06-19 08:21] LABS: Poikilocytosis 2+
--- NOTE | 2021-06-19 09:14 | HMH.PULMPN ---
Internal Medicine - PN: Subj *Date: 06/19/21 *Time: 11:23 Interval history: No acute respiratory vents overnight. Patient admits slight improvement in her symptoms. She admits compliance with proning protocol. Exam - Constitutional Constitutional:: Present: no acute distress, comfortable - HENMT Exam HENMT: Present: normocephalic, atraumatic - Eye Exam Eyes:: Present: normal appearance both eyes and related structures - Neck Exam Neck:: Present: normal visual inspection - Respiratory Exam Respiratory:: Present: able to speak in complete sentences, no respiratory distress, rales. Absent: wheezing - Cardiovascular Exam Cardiac:: Present: S1, S2 - GI Exam GI:: Present: soft, no hepatosplenomegaly - Skin Exam Skin: Present: warm, no rash - Neurological Exam Neurological: Present: alert, awake, normal cognition - Extremities Exam Extremities: Present: no cyanosis, no clubbing, no edema Assessment and Plan (1) Elevated troponin Status: Acute Category: Medical Code(s): R77.8 - Other specified abnormalities of plasma proteins (2) Pneumonia due to COVID-19 virus Status: Acute Category: Medical Code(s): U07.1 - COVID-19; J12.82 - Pneumonia due to coronavirus disease 2019 (3) Respiratory failure with hypoxia Status: Acute Qualifiers: Chronicity: acute Qualified Code(s): J96.01 - Acute respiratory failure with hypoxia Category: Medical Code(s): J96.91 - Respiratory failure, unspecified with hypoxia - Assessment and plan all Dx Assessment and Plan for all problems:: #Acute hypoxic respiratory failure: #COVID-19 pneumonia: Ms. Crisostomo is a 76-year-old female never smoker, no prior respiratory complaints, not yet vaccinated for COVID-19 pneumonia presented to the hospital with worsening respiratory status and found to be having COVID-19 pneumonia and pulmonary was called for further management. D-dimer elevated at 4.04. CTA on admission bilateral patchy airspace disease, no evidence of pulmonary embolism. CRP elevated at 13.8. Patient was initiated on ceftriaxone and azithromycin along with remdesivir, dexamethasone and baricitinib. Interval update: Respiratory status improving. Echocardiogram EF of 55% with grade 1 LV diastolic dysfunction. She admits compliance with proning protocol. Saturating 96 to 97% on 8 L nasal cannula, weaned to 6 L. Plan: -Continue nasal cannula can supplementation to maintain O2 saturation goal of 88% and above, wean to 6 L nasal cannula this morning, continue to wean as tolerated. -COntinue proning protocol. -Continue ceftriaxone and azithromycin for 5 days. -Continue remdesivir for 5 days, dexamethasone for 10 days and baricitinib for 14 days. -Advair 250 BID -Follow with cardiology recommendations #Thank you for involving pulmonary in this patient care. We will continue to follow
--- NOTE | 2021-06-19 10:01 | HMH.ACPN2 ---
Internal Medicine - PN: Subj *Date: 06/19/21 *Time: 10:01 Exam Vital signs and Labs for Last 24 Hours: Temp Pulse Resp BP Pulse Ox 97.7 F 81 16 101/69 L 91 L 06/19/21 08:49 06/19/21 08:49 06/19/21 08:49 06/19/21 08:49 06/19/21 08:49 Laboratory Results - last 24 hr 06/19/21 05:40: WBC 8.4, RBC 3.92 L, Hgb 11.8 L, Hct 35.5 L, MCV 90.5, MCH 30.2, MCHC 33.3, RDW 13.9, Plt Count 160 D, MPV 9.6, Neut % (Auto) 90.8 H, Lymph % (Auto) 4.8 L, Heard % (Auto) 4.0, Eos % (Auto) 0.2, Baso % (Auto) 0.2, Neut # (Auto) 7.6, Lymph # (Auto) 0.4 L, Heard # (Auto) 0.3, Eos # (Auto) 0.0, Baso # (Auto) 0.0, Total Counted 100, Neutrophils % (Manual) 94 H, Lymphocytes % (Manual) 4 L, Monocytes % (Manual) 2, Platelet Estimate Normal, Poikilocytosis 2+ 06/19/21 05:40: C-Reactive Protein 30.8 H 06/19/21 05:40: Sodium 135 L, Potassium 4.1, Chloride 104, Carbon Dioxide 29, Anion Gap 6.1, BUN 19 H, Creatinine 0.60, Estimated Creat Clear 57, Estimated GFR 99, Est GFR ( Amer) 119, Glucose 103 H, Calcium 8.1 L, Total Bilirubin 0.5, AST 29 D, ALT 32, Alkaline Phosphatase 73, Total Protein 4.8 L, Albumin 2.5 L, Globulin 2.3, Albumin/Globulin Ratio 1.1 I & O for Last 24 hours: Intake & Output 06/16/21 06/17/21 06/18/21 06/19/21 23:59 23:59 23:59 23:59 Intake Total 480 / 480 1200 / 1200 720 / 720 Output Total 670 / 670 400 / 1000 600 / 600 Balance -190 / -190 800 / 200 120 / 120 Weight 159 lb 159 lb 158 lb 11.725 oz 154 lb 6.4 oz Microbiology Reports for the Last 24 Hours: Microbiology 06/16/21 15:52 Sputum - Expectorated Sputum Gram Stain - Final 06/16/21 15:52 Sputum - Expectorated Sputum Sputum Culture - Final Normal Respiratory Leonarda - Constitutional no acute distress - *Routine HEENT Exam Head: Present: normocephalic Eye: Present: EOMI ENT: Present: mucous membranes moist - *Routine Neck Exam Present: trachea midline. Absent: tracheal deviation - *Routine Respiratory Exam Present: crackles. Absent: accessory muscle use - *Routine Cardiovascular Exam Present: RRR - *Routine Abdominal Exam Present: soft, normoactive bowel sounds. Absent: firm - *Routine Extremities Exam Present: full ROM, pulses intact. Absent: cyanosis, edema - *Routine Skin Exam Present: intact, dry. Absent: cyanosis, erythema - *Routine Neurological Exam Present: alert, oriented X3. Absent: altered mental status - Routine Psychiatric Exam Present: normal affect, normal thought process, cooperative Assessment and Plan (1) Elevated troponin Status: Acute Category: Medical Code(s): R77.8 - Other specified abnormalities of plasma proteins (2) Pneumonia due to COVID-19 virus Status: Acute Category: Medical Code(s): U07.1 - COVID-19; J12.82 - Pneumonia due to coronavirus disease 2019 (3) Respiratory failure with hypoxia Status: Acute Qualifiers: Chronicity: acute Qualified Code(s): J96.01 - Acute respiratory failure with hypoxia Category: Medical Code(s): J96.91 - Respiratory failure, unspecified with hypoxia - Assessment and plan all Dx Assessment and Plan for all problems:: Rounded with Dr. Rod, all orders per Dr. Rod: 1. Continue to wean oxygen as titrated 2. Pulmonology following
--- NOTE | 2021-06-19 14:32 | P.PN_ITS ---
Internal Medicine - PN: Subj *Date: 06/19/21 *Time: 14:32 Exam Vital signs and Labs for Last 24 Hours: Temp Pulse Resp BP Pulse Ox 98.0 F 77 16 122/80 95 06/19/21 11:48 06/19/21 11:48 06/19/21 11:48 06/19/21 11:48 06/19/21 11:48 Laboratory Results - last 24 hr 06/19/21 05:40: WBC 8.4, RBC 3.92 L, Hgb 11.8 L, Hct 35.5 L, MCV 90.5, MCH 30.2, MCHC 33.3, RDW 13.9, Plt Count 160 D, MPV 9.6, Neut % (Auto) 90.8 H, Lymph % (Auto) 4.8 L, Schleicher % (Auto) 4.0, Eos % (Auto) 0.2, Baso % (Auto) 0.2, Neut # (Auto) 7.6, Lymph # (Auto) 0.4 L, Schleicher # (Auto) 0.3, Eos # (Auto) 0.0, Baso # (Auto) 0.0, Total Counted 100, Neutrophils % (Manual) 94 H, Lymphocytes % (Manual) 4 L, Monocytes % (Manual) 2, Platelet Estimate Normal, Poikilocytosis 2+ 06/19/21 05:40: C-Reactive Protein 30.8 H 06/19/21 05:40: Sodium 135 L, Potassium 4.1, Chloride 104, Carbon Dioxide 29, Anion Gap 6.1, BUN 19 H, Creatinine 0.60, Estimated Creat Clear 57, Estimated GFR 99, Est GFR ( Amer) 119, Glucose 103 H, Calcium 8.1 L, Total Bilirubin 0.5, AST 29 D, ALT 32, Alkaline Phosphatase 73, Total Protein 4.8 L, Albumin 2.5 L, Globulin 2.3, Albumin/Globulin Ratio 1.1 I & O for Last 24 hours: Intake & Output 06/16/21 06/17/21 06/18/21 06/19/21 23:59 23:59 23:59 23:59 Intake Total 480 / 480 1200 / 1200 720 / 720 240 / 240 Output Total 670 / 670 400 / 1000 600 / 600 Balance -190 / -190 800 / 200 120 / 120 240 / 240 Weight 72.121 kg 72.121 kg 72 kg 70.035 kg Microbiology Reports for the Last 24 Hours: Microbiology 06/16/21 15:52 Sputum - Expectorated Sputum Gram Stain - Final 06/16/21 15:52 Sputum - Expectorated Sputum Sputum Culture - Final Normal Respiratory Leonarda Assessment and Plan (1) Elevated troponin Status: Acute Category: Medical Code(s): R77.8 - Other specified abnorma lities of plasma proteins (2) Pneumonia due to COVID-19 virus Status: Acute Category: Medical Code(s): U07.1 - COVID-19; J12.82 - Pneumonia due to coronavirus disease 2019 (3) Respiratory failure with hypoxia Status: Acute Qualifiers: Chronicity: acute Qualified Code(s): J96.01 - Acute respiratory failure with hypoxia Category: Medical Code(s): J96.91 - Respiratory failure, unspecified with hypoxia The patient's infection will respond to the chosen ABx?: Yes Is the patient receiving the right drug, dose, and route?: Yes Could a more targeted ABx be ordered?: No
--- NOTE | 2021-06-19 17:42 | PC.NURSE ---
Pt is alert and oriented x4. She has been pleasant and cooperative this shift. Lungs are clear t/o. She is currently on 8L NC w/O2 sats in the mid 90's. When in the bed she raises it up high to see out the window. Bed alarm set and pt instructed to use call light for assistance. Appetite is good. Family has brought in lots of food and snacks for pt to eat. IV to RFA infiltrated. Warm cloth and ice pack both offered to pt but she refused. New IV placed to LFA. It is patent and has good blood return. She hs reported no complaints.
[2021-06-20] VITALS (8 sets, daily range): BP systolic 97–131; BP diastolic 56–80; PULSE 60–85; RESP 17–21; TEMP 36.5–36.8; O2SAT 91–99; BMI 28.2
[2021-06-20 07:30] LABS: Basophils % 0.5 % (0.1-2.0); Eosinophils % 0.1 % (0.1-12.0); Hematocrit 37.6 % (37.0-47.0); Hemoglobin 12.5 g/dL (12.2-16.2); Lymphocytes # 0.4 K/mm3 (0.7-4.5); Lymphocytes % 5.1 % (10-50); Mean Corpuscular HGB Conc 33.3 g/dL (31.8-35.4); Mean Corpuscular Hemoglobin 30.2 pg (27.0-31.2); Mean Corpuscular Volume 90.8 fl (81-99); Mean Platelet Volume 9.9 fl (7.4-10.4); Monocytes # 0.5 K/mm3 (0.1-1.0); Neutrophils # 6.8 K/mm3 (1.8-7.8); Neutrophils % 88.3 % (37.0-80.0); Platelet Count 209 K/mm3 (142-424); Red Blood Count 4.14 M/mm3 (4.20-5.40); Red Cell Distribution Width 13.8 % (11.5-17.5); White Blood Count 7.7 K/mm3 (4.8-10.8)
[2021-06-20 07:52] LABS: MANUAL DIFFERENTIAL MANUAL DIFFERENTIAL (MANUAL DIFF)
[2021-06-20 07:56] LABS: Alanine Aminotransferase 29 U/L (12-78); Albumin Level 2.8 g/dl (3.5-5.0); Albumin/Globulin Ratio 1.2 (1.1-1.8); Alkaline Phosphatase 78 U/L (38-126); Aspartate Amino Transferase 27 U/L (14-36); Bilirubin,Total 0.6 mg/dl (0.2-1.3); Blood Urea Nitrogen 21 mg/dl (7-17); Calcium 8.4 mg/dl (8.4-10.2); Carbon Dioxide 32 mmol/L (22.0-30.0); Chloride 99 mmol/L (98-107); Creatinine Clearance Estimated 57 mL/min (50-200); Estimated Glomerular Filt Rate 122 ml/min (>60); GFR (African American) 147 ML/MIN (>60); Globulin 2.3 g/dL (1.3-3.2); Glucose 117 mg/dl (74-100); Sodium 133 mmol/L (136-145); Total Protein,Serum 5.1 g/dl (6.3-8.2)
[2021-06-20 08:51] LABS: Lymphocytes % 10 % (10-50); Monocytes % 3 % (2-9); Neutrophils % 87 % (42-76); Platelet Estimate Normal; Total Cells Counted 100
[2021-06-20 08:52] LABS: Poikilocytosis 2+
[2021-06-20 08:53] LABS: Acanthocytes 1+
--- NOTE | 2021-06-20 09:21 | HMH.PULMPN ---
Internal Medicine - PN: Subj *Date: 06/20/21 *Time: 11:38 Interval history: No acute respiratory events overnight. Patient was placed back on 8 L nasal cannula. Exam - Constitutional Constitutional:: Present: no acute distress, comfortable - HENMT Exam HENMT: Present: normocephalic, moist mucous membranes - Eye Exam Eyes:: Present: normal appearance both eyes and related structures - Neck Exam Neck:: Present: normal visual inspection - Respiratory Exam Respiratory:: Present: able to speak in complete sentences, respiratory distress, rales. Absent: wheezing - Cardiovascular Exam Cardiac:: Present: S1, S2 - GI Exam GI:: Present: soft - Skin Exam Skin: Present: warm, no rash - Neurological Exam Neurological: Present: alert, awake, normal cognition - Extremities Exam Extremities: Present: no cyanosis, no clubbing, no edema Assessment and Plan (1) Elevated troponin Status: Acute Category: Medical Code(s): R77.8 - Other specified abnormalities of plasma proteins (2) Pneumonia due to COVID-19 virus Status: Acute Category: Medical Code(s): U07.1 - COVID-19; J12.82 - Pneumonia due to coronavirus disease 2019 (3) Respiratory failure with hypoxia Status: Acute Qualifiers: Chronicity: acute Qualified Code(s): J96.01 - Acute respiratory failure with hypoxia Category: Medical Code(s): J96.91 - Respiratory failure, unspecified with hypoxia - Assessment and plan all Dx Assessment and Plan for all problems:: #Acute hypoxic respiratory failure: #COVID-19 pneumonia: Ms. Crisostomo is a 76-year-old female never smoker, no prior respiratory complaints, not yet vaccinated for COVID-19 pneumonia presented to the hospital with worsening respiratory status and found to be having COVID-19 pneumonia and pulmonary was called for further management. D-dimer elevated at 4.04. CTA on admission bilateral patchy airspace disease, no evidence of pulmonary embolism. CRP elevated at 13.8. Patient receiving ceftriaxone and azithromycin along with remdesivir, dexamethasone and baricitinib. Echocardiogram EF of 55% with grade 1 LV diastolic dysfunction. Blood cultures no growth. Sputum normal respiratory samir. Patient respiratory status has been relatively stable since admission with no significant improvement. She continued to remain in 6 to 8 L nasal to maintain O2 saturations at 88% and above. She admits compliance with proning protocol now. We will continue current therapy. Plan: -Continue nasal cannula can supplementation to maintain O2 saturation goal of 88% and above -COntinue proning protocol. -Continue ceftriaxone and azithromycin for 5 days. -Continue remdesivir for 5 days, dexamethasone for 10 days and baricitinib for 14 days. -Advair 250 BID -Follow with cardiology recommendations #Thank you for involving pulmonary in this patient care. We will continue to follow
--- NOTE | 2021-06-20 12:31 | PC.NURSE ---
Call received from Assistant Portfolio Manager, stated patient's daughter called regarding concerns about no visitors and patient's increasing anxiety. Daughter requested a family member be allowed to stay w patient. Assistant Portfolio Manager explained to daughter that she would refer to CNO for an exception to current visitation policy. Chart reviewed per myself. Contacted daughter Kathy via telephone to discuss request and patient's status. Daughter Kathy stated my mom is very anxious about being alone. We have been staying in the parking lot through the night so she can see us through the window. Daughter stated that patient's son had just been diagnosed with colon cancer and was starting chemotherapy on Friday and patient was very nervous about that. Explained in detail to Kathy that I would allow an exception of 1 visitor to remain with the patient for duration of stay. Explained in detail that they cannot trade out in shifts, and the one visitor must remain at the bedside with a mask in use. Explained in detail that non-compliance would result in forefeiture of visitation exception. Daughter stated understanding. Nursing staff notified, Assistant Portfolio Manager notified, Case Management notified, and IP RN notified. Will follow up as needed. Akil Max RN, O
--- NOTE | 2021-06-20 13:52 | PC.NURSE ---
Patient like to raise the bed to full height and she was informed by this srna that it was not very safe and soria to do so but i was told by another RN jordan that the patient likes to raise it that high her self to see the view outside. shanon QUAN informed me that he felt safer with the patient having the bed alarm put on
--- NOTE | 2021-06-20 13:55 | PC.NURSE ---
PT RAISES BED PER SELF WHEN STAFF IS NOT IN ROOM. THIS RN AND OTHER STAFF MEMBERS HAVE EDUCATED PT THAT THIS IS A SAFETY RISK AND THAT IT INCREASES HER RISK FOR FALLS IF SHE WERE TO GET UP. PT STATED UNDERSTANDING. SHE WAS ALSO EDUCATED ON THE IMPORTANCE OF USING HER CALL LIGHT IF SHE NEEDED TO GET OUT OF BED. SHE STATED HER UNDERSTANDING. CALL LIGHT WITHIN REACH. BED ALARM IN USE AT THIS TIME.
--- NOTE | 2021-06-20 15:26 | HMH.ACPN2 ---
Internal Medicine - PN: Subj *Date: 06/20/21 *Time: 08:53 Interval history: 71-year-old female patient resting in bed quietly current oxygenation 91% on 8 L high flow nasal cannula. She reports she is feeling better and denies any shortness of breath. Long discussion with patient regarding she is still not well enough to be discharged yet and cannot be discharged on on 8 L nasal cannula the maximum before liters nasal cannula. Long discussion with patient regarding COVID-19 effects on the body, how it affects each individual differently, and possible metal color outcomes. Exam Vital signs and Labs for Last 24 Hours: Temp Pulse Resp BP Pulse Ox 97.7 F 85 17 97/62 L 96 06/20/21 11:42 06/20/21 11:42 06/20/21 11:42 06/20/21 11:42 06/20/21 11:42 Laboratory Results - last 24 hr 06/20/21 06:29: WBC 7.7, RBC 4.14 L, Hgb 12.5, Hct 37.6, MCV 90.8, MCH 30.2, MCHC 33.3, RDW 13.8, Plt Count 209 D, MPV 9.9, Neut % (Auto) 88.3 H, Lymph % (Auto) 5.1 L, Trigg % (Auto) 6.0, Eos % (Auto) 0.1, Baso % (Auto) 0.5, Neut # (Auto) 6.8, Lymph # (Auto) 0.4 L, Trigg # (Auto) 0.5, Eos # (Auto) 0.0, Baso # (Auto) 0.0, Total Counted 100, Neutrophils % (Manual) 87 H, Lymphocytes % (Manual) 10, Monocytes % (Manual) 3, Platelet Estimate Normal, Poikilocytosis 2+, Acanthocytes (Spur) 1+ 06/20/21 06:29: Sodium 133 L, Potassium 4.0, Chloride 99, Carbon Dioxide 32 H, Anion Gap 6.0, BUN 21 H, Creatinine 0.50 L, Estimated Creat Clear 57, Estimated GFR 122, Est GFR ( Amer) 147 D, Glucose 117 H, Calcium 8.4, Total Bilirubin 0.6, AST 27, ALT 29, Alkaline Phosphatase 78, Total Protein 5.1 L, Albumin 2.8 L D, Globulin 2.3, Albumin/Globulin Ratio 1.2 I & O for Last 24 hours: Intake & Output 06/17/21 06/18/21 06/19/21 06/20/21 23:59 23:59 23:59 23:59 Intake Total 1200 / 1200 720 / 720 480 / 600 600 / 600 Output Total 400 / 1000 600 / 600 300 / 300 350 / 350 Balance 800 / 200 120 / 120 180 / 300 250 / 250 Weight 159 lb 158 lb 11.725 oz 154 lb 6.4 oz 153 lb 8 oz Microbiology Reports for the Last 24 Hours: Microbiology 06/15/21 09:05 Blood Blood Culture - Final NO GROWTH AFTER 5 DAYS 06/15/21 09:41 Blood Blood Culture - Final NO GROWTH AFTER 5 DAYS - Constitutional no acute distress - *Routine HEENT Exam Head: Present: normocephalic Eye: Present: EOMI ENT: Present: mucous membranes moist - *Routine Neck Exam Present: trachea midline. Absent: tracheal deviation - *Routine Respiratory Exam Present: crackles. Absent: accessory muscle use - *Routine Cardiovascular Exam Present: RRR - *Routine Abdominal Exam Present: soft, normoactive bowel sounds. Absent: tenderness, firm - *Routine Extremities Exam Present: full ROM, pulses intact. Absent: cyanosis, clubbing - *Routine Skin Exam Present: intact, dry. Absent: cyanosis, erythema - *Routine Neurological Exam Present: alert, oriented X3. Absent: motor deficit - Routine Psychiatric Exam Present: normal affect, normal thought process. Absent: auditory hallucinations Assessment and Plan (1) Elevated troponin Status: Acute Category: Medical Code(s): R77.8 - Other specified abnormalities of plasma proteins (2) Pneumonia due to COVID-19 virus Status: Acute Category: Medical Code(s): U07.1 - COVID-19; J12.82 - Pneumonia due to coronavirus disease 2019 (3) Respiratory failure with hypoxia Status: Acute Qualifiers: Chronicity: acute Qualified Code(s): J96.01 - Acute respiratory failure with hypoxia Category: Medical Code(s): J96.91 - Respiratory failure, unspecified with hypoxia - Assessment and plan all Dx Assessment and Plan for all problems:: Rounded with Dr. Tejada, all orders per Dr. Tejada: 1. Cont to wean oxygen as tolerated 2. Pulmonology consultintg
--- NOTE | 2021-06-20 18:53 | PC.NURSE ---
PT IS AOX4, ABLE TO MAKE NEEDS KNOWN TO STAFF, SHE HAS BEEN VERY ANXIOUS THIS SHIFT. IS VERY CONCERNED WITH CARE PLAN. HAS REQUIRED 8LNC FOR OR SUPPORT. SHE HAS PRONED FOR 6 GOURS THIS SHIFT AND THE REST OF THE SHIFT SAT UPRIGHT ON THE EDGE OF THE BED.
[2021-06-21] VITALS (8 sets, daily range): BP systolic 98–132; BP diastolic 60–87; PULSE 65–87; RESP 18–20; TEMP 36.4–36.7; O2SAT 94–97; BMI 27.8
--- NOTE | 2021-06-21 06:00 | XR_ITS ---
PROCEDURE INFORMATION: Exam: XR Chest Exam date and time: 06/21/2021 6:00 AM Age: 71 years old Clinical indication: Shortness of breath; Additional info: Covid TECHNIQUE: Imaging protocol: XR of the chest. Views: 1 view. COMPARISON: CR XR CHEST PORTABLE 06/18/2021 5:50 AM FINDINGS: Lungs: Emphysematous change and bilateral interstitial/airspace disease in the setting of reported COVID-19 pneumonitis. The extent of airspace disease has mildly worsened. Pleural spaces: No pleural effusion. Heart/Mediastinum: No cardiomegaly. Bones/joints: Osteopenia and degenerative change. IMPRESSION: Emphysematous change and bilateral interstitial/airspace disease in the setting of reported COVID-19 pneumonitis. The extent of airspace disease has mildly worsened.
[2021-06-21 06:56] LABS: Alanine Aminotransferase 26 U/L (12-78); Albumin Level 2.9 g/dl (3.5-5.0); Albumin/Globulin Ratio 1.3 (1.1-1.8); Alkaline Phosphatase 69 U/L (38-126); Anion Gap 7.3 mEq/L (5-15); Aspartate Amino Transferase 22 U/L (14-36); Bilirubin,Total 0.4 mg/dl (0.2-1.3); Blood Urea Nitrogen 26 mg/dl (7-17); Calcium 8.5 mg/dl (8.4-10.2); Carbon Dioxide 31 mmol/L (22.0-30.0); Chloride 99 mmol/L (98-107); Creatinine Clearance Estimated 56 mL/min (50-200); Estimated Glomerular Filt Rate 99 ml/min (>60); GFR (African American) 119 ML/MIN (>60); Globulin 2.2 g/dL (1.3-3.2); Glucose 132 mg/dl (74-100); Potassium 4.3 mmoL/L (3.5-5.1); Sodium 133 mmol/L (136-145); Total Protein,Serum 5.1 g/dl (6.3-8.2)
[2021-06-21 07:16] LABS: Basophils % 0.2 % (0.1-2.0); Hemoglobin 12.4 g/dL (12.2-16.2); Lymphocytes # 0.5 K/mm3 (0.7-4.5); Mean Corpuscular HGB Conc 32.7 g/dL (31.8-35.4); Mean Corpuscular Hemoglobin 30.1 pg (27.0-31.2); Mean Corpuscular Volume 92.2 fl (81-99); Mean Platelet Volume 9.9 fl (7.4-10.4); Monocytes # 0.5 K/mm3 (0.1-1.0); Monocytes % 5.5 % (1.7-9.3); Neutrophils # 7.2 K/mm3 (1.8-7.8); Neutrophils % 88.4 % (37.0-80.0); Platelet Count 250 K/mm3 (142-424); Red Blood Count 4.12 M/mm3 (4.20-5.40); Red Cell Distribution Width 14.1 % (11.5-17.5); White Blood Count 8.2 K/mm3 (4.8-10.8)
[2021-06-21 07:21] LABS: MANUAL DIFFERENTIAL MANUAL DIFFERENTIAL (MANUAL DIFF)
[2021-06-21 08:49] LABS: Lymphocytes % 10 % (10-50); Monocytes % 3 % (2-9); Neutrophils % 87 % (42-76); Platelet Estimate Normal; Total Cells Counted 100
[2021-06-21 08:51] LABS: Poikilocytosis 1+; Schistocytes 1+
--- NOTE | 2021-06-21 09:31 | HMH.ACPN2 ---
Internal Medicine - PN: Subj *Date: 06/21/21 *Time: 09:43 Interval history: 71-year-old female patient resting quietly in bed, she reports she is feeling better today. Oxygenation decreased from 8 L to 7 L high flow nasal cannula. is staying in room at present, patient is able to have conversation without shortness of breath. Another long discussion regarding COVID-19 and her medical status. Exam Vital signs and Labs for Last 24 Hours: Temp Pulse Resp BP Pulse Ox 97.6 F 78 20 122/60 97 06/21/21 08:00 06/21/21 08:00 06/21/21 08:00 06/21/21 08:00 06/21/21 08:00 Laboratory Results - last 24 hr 06/21/21 05:20: WBC 8.2, RBC 4.12 L, Hgb 12.4, Hct 38.0, MCV 92.2, MCH 30.1, MCHC 32.7, RDW 14.1, Plt Count 250, MPV 9.9, Neut % (Auto) 88.4 H, Lymph % (Auto) 6.0 L, Winston % (Auto) 5.5, Eos % (Auto) 0.0 L, Baso % (Auto) 0.2, Neut # (Auto) 7.2, Lymph # (Auto) 0.5 L, Winston # (Auto) 0.5, Eos # (Auto) 0.0, Baso # (Auto) 0.0, Total Counted 100, Neutrophils % (Manual) 87 H, Lymphocytes % (Manual) 10, Monocytes % (Manual) 3, Platelet Estimate Normal, Poikilocytosis 1+, Schistocytes 1+ 06/21/21 05:20: Sodium 133 L, Potassium 4.3, Chloride 99, Carbon Dioxide 31 H, Anion Gap 7.3, BUN 26 H, Creatinine 0.60, Estimated Creat Clear 56, Estimated GFR 99, Est GFR ( Amer) 119, Glucose 132 H, Calcium 8.5, Total Bilirubin 0.4, AST 22, ALT 26, Alkaline Phosphatase 69, Total Protein 5.1 L, Albumin 2.9 L, Globulin 2.2, Albumin/Globulin Ratio 1.3 I & O for Last 24 hours: Intake & Output 06/18/21 06/19/21 06/20/21 06/21/21 23:59 23:59 23:59 23:59 Intake Total 720 / 720 480 / 600 840 / 840 Output Total 600 / 600 300 / 300 350 / 350 0 / 0 Balance 120 / 120 180 / 300 490 / 490 0 / 0 Weight 158 lb 11.725 oz 154 lb 6.4 oz 153 lb 8 oz 151 lb 4.8 oz Microbiology Reports for the Last 24 Hours: Microbiology 06/15/21 09:05 Blood Blood Culture - Final NO GROWTH AFTER 5 DAYS 06/15/21 09:41 Blood Blood Culture - Final NO GROWTH AFTER 5 DAYS - Constitutional no acute distress - *Routine HEENT Exam Head: Present: normocephalic Eye: Present: EOMI ENT: Present: mucous membranes moist - *Routine Neck Exam Present: trachea midline. Absent: tracheal deviation - *Routine Respiratory Exam Present: crackles. Absent: accessory muscle use - *Routine Cardiovascular Exam Present: RRR - *Routine Abdominal Exam Present: soft, normoactive bowel sounds. Absent: tenderness, firm - *Routine Extremities Exam Present: full ROM, pulses intact. Absent: cyanosis, clubbing, edema, calf tenderness - *Routine Skin Exam Present: intact, dry. Absent: cyanosis, erythema - *Routine Neurological Exam Present: alert, oriented X3. Absent: motor deficit - Routine Psychiatric Exam Present: normal affect, normal thought process. Absent: visual hallucinations Assessment and Plan (1) Elevated troponin Status: Acute Category: Medical Code(s): R77.8 - Other specified abnormalities of plasma proteins (2) Pneumonia due to COVID-19 virus Status: Acute Category: Medical Code(s): U07.1 - COVID-19; J12.82 - Pneumonia due to coronavirus disease 2019 (3) Respiratory failure with hypoxia Status: Acute Qualifiers: Chronicity: acute Qualified Code(s): J96.01 - Acute respiratory failure with hypoxia Category: Medical Code(s): J96.91 - Respiratory failure, unspecified with hypoxia - Assessment and plan all Dx Assessment and Plan for all problems:: Rounded with Dr. Rod, all orders per Dr. Rod: 1. Continue to wean O2 as tolerated 2. Pulmonology following 3. Has been staying in room
--- NOTE | 2021-06-21 14:41 | P.PN_ITS ---
Internal Medicine - PN: Subj *Date: 06/21/21 *Time: 14:41 Interval history: No acute respiratory vents overnight. Patient admits improvement in her symptoms. Exam - Constitutional Constitutional:: Present: no acute distress, comfortable - HENMT Exam HENMT: Present: normocephalic, atraumatic - Eye Exam Eyes:: Present: normal appearance both eyes and related structures - Neck Exam Neck:: Present: normal visual inspection - Respiratory Exam Respiratory:: Present: able to speak in complete sentences, no respiratory distress, rales. Absent: crackles, wheezing - Cardiovascular Exam Cardiac:: Present: S1, S2 - GI Exam GI:: Present: soft, no hepatosplenomegaly - Skin Exam Skin: Present: warm, no rash - Neurological Exam Neurological: Present: alert, awake, normal cognition - Extremities Exam Extremities: Present: no cyanosis, no clubbing, no edema Assessment and Plan (1) Elevated troponin Status: Acute Category: Medical Code(s): R77.8 - Other specified abnormali ties of plasma proteins (2) Pneumonia due to COVID-19 virus Status: Acute Category: Medical Code(s): U07.1 - COVID-19; J12.82 - Pneumonia due to coronavirus disease 2019 (3) Respiratory failure with hypoxia Status: Acute Qualifiers: Chronicity: acute Qualified Code(s): J96.01 - Acute respiratory failure with hypoxia Category: Medical Code(s): J96.91 - Respiratory failure, unspecified with hypoxia - Assessment and plan all Dx Assessment and Plan for all problems:: #Acute hypoxic respiratory failure: #COVID-19 pneumonia: Ms. Crisostomo is a 76-year-old female never smoker, no prior respiratory complaints, not yet vaccinated for COVID-19 pneumonia presented to the hospital with worsening respiratory status and found to be having COVID-19 pneumonia and pulmonary was called for further management. D-dimer elevated at 4.04. CTA on admission bilateral patchy airspace disease, no evidence of pulmonary embolism. CRP elevated at 13.8. Patient receiving ceftriaxone and azithromycin along with remdesivir, dexamethasone and baricitinib. Echocardiogram EF of 55% with grade 1 LV diastolic dysfunction. Blood cultures no growth. Sputum normal respiratory samir. Interval update: Patient respiratory slightly improved from yesterday. She was saturating 97% and weaned to 5 L nasal cannula. She continued to be compliant with her proning protocol. Plan: -Continue nasal cannula can supplementation to maintain O2 saturation goal of 88% and above -COntinue proning protocol. -Completed 7-day course of Ceftriaxone Day 4 of 5 of azithromycin. -Continue remdesivir for 10 days, dexamethasone for 10 days and baricitinib for 14 days. -Advair 250 BID -Follow with cardiology recommendations #Thank you for involving pulmonary in this patient care. We will continue to follow
[2021-06-22] VITALS: BP 109/56; PULSE 64; RESP 18; TEMP 37; O2SAT 99
[2021-06-22 04:00] VITALS: BP 117/76; PULSE 64; RESP 18; TEMP 36.9; O2SAT 96
[2021-06-22 04:52] VITALS: BMI 27.8
[2021-06-22 06:20] VITALS: O2SAT 98
[2021-06-22 07:17] LABS: Alanine Aminotransferase 27 U/L (12-78); Albumin Level 2.7 g/dl (3.5-5.0); Albumin/Globulin Ratio 1.3 (1.1-1.8); Alkaline Phosphatase 66 U/L (38-126); Aspartate Amino Transferase 21 U/L (14-36); Bilirubin,Total 0.3 mg/dl (0.2-1.3); Blood Urea Nitrogen 26 mg/dl (7-17); Calcium 8.2 mg/dl (8.4-10.2); Carbon Dioxide 28 mmol/L (22.0-30.0); Chloride 101 mmol/L (98-107); Creatinine Clearance Estimated 56 mL/min (50-200); Estimated Glomerular Filt Rate 82 ml/min (>60); GFR (African American) 100 ML/MIN (>60); Globulin 2.1 g/dL (1.3-3.2); Glucose 242 mg/dl (74-100); Sodium 135 mmol/L (136-145); Total Protein,Serum 4.8 g/dl (6.3-8.2)
[2021-06-22 07:33] VITALS: BP 122/65; PULSE 75; RESP 19; TEMP 36.6; O2SAT 97
[2021-06-22 08:00] VITALS: O2SAT 97
--- NOTE | 2021-06-22 09:28 | P.PN_ITS ---
Internal Medicine - PN: Subj *Date: 06/22/21 *Time: 11:54 Interval history: No acute respiratory events overnight. Patient admits continued improvement in her symptoms. Exam - Constitutional Constitutional:: Present: no acute distress, comfortable - HENMT Exam HENMT: Present: normocephalic, atraumatic - Eye Exam Eyes:: Present: normal appearance both eyes and related structures - Neck Exam Neck:: Present: normal visual inspection - Respiratory Exam Respiratory:: Present: able to speak in complete sentences, no respiratory distress, normal respiratory effort, rales - Cardiovascular Exam Cardiac:: Present: S1, S2 - GI Exam GI:: Present: soft - Skin Exam Skin: Present: warm, no rash - Neurological Exam Neurological: Present: alert, awake, normal cognition - Extremities Exam Extremities: Present: no cyanosis, no clubbing, no edema Assessment and Plan (1) Elevated troponin Status: Acute Category: Medical Code(s): R77.8 - Other specified abnormalities of plasma proteins (2) Pneumonia due to COVID-19 virus Status: Acute Category: Medical Code(s): U07.1 - COVID-19; J12.82 - Pneumonia due to coronavirus disease 2019 (3) Respiratory failure with hypoxia Status: Acute Qualifiers: Chronicity: acute Qualified Code(s): J96.01 - Acute respiratory failure with hypoxia Category: Medical Code(s): J96.91 - Respiratory failure, unspecified with hypoxia - Assessment and plan all Dx Assessment and Plan for all problems:: #Acute hypoxic respiratory failure: #COVID-19 pneumonia: Ms. Crisostomo is a 76-year-old female never smoker, no prior respiratory complaints, not yet vaccinated for COVID-19 pneumonia presented to the hospital with worsening respiratory status and found to be having COVID-19 pneumonia and pulmonary was called for further management. D-dimer elevated at 4.04. CTA on admission bilateral patchy airspace disease, no evidence of pulmonary embolism. CRP elevated at 13.8. Patient receiving ceftriaxone and azithromycin along with remdesivir, dexamethasone and baricitinib. Echocardiogram EF of 55% with grade 1 LV diastolic dysfunction. Blood cultures no growth. Sputum normal respiratory samir. Interval update: Patient respiratory status continued to improve, she was saturating 99% on 3 L nasal cannula, weaned to 2 L. Patient respiratory status remained stable she can be discharged home on oxygen therapy. Plan conveyed to primary team. Plan: -Continue nasal cannula can supplementation to maintain O2 saturation goal of 88 % and above -COntinue proning protocol. -Completed 7-day course of Ceftriaxone and 5 days of azithromycin. -Continue remdesivir for 10 days / untill dischharge, dexamethasone for 10 days and baricitinib for 14 days. -Advair 250 BID -Follow with cardiology recommendations #Thank you for involving pulmonary in this patient care. We will follow the patient in pulmonary clinic in 4-6 weeks with full PFT and 6 MWT.
--- NOTE | 2021-06-22 09:31 | HMH.ACPN2 ---
Internal Medicine - PN: Subj *Date: 06/22/21 *Time: 09:31 Exam Vital signs and Labs for Last 24 Hours: Temp Pulse Resp BP Pulse Ox 97.9 F 75 19 122/65 97 06/22/21 07:33 06/22/21 07:33 06/22/21 07:33 06/22/21 07:33 06/22/21 07:33 Laboratory Results - last 24 hr 06/22/21 06:40: Sodium 135 L, Potassium 4.0, Chloride 101, Carbon Dioxide 28, Anion Gap 10.0, BUN 26 H, Creatinine 0.70, Estimated Creat Clear 56, Estimated GFR 82, Est GFR ( Amer) 100, Glucose 242 H, Calcium 8.2 L, Total Bilirubin 0.3, AST 21, ALT 27, Alkaline Phosphatase 66, Total Protein 4.8 L, Albumin 2.7 L, Globulin 2.1, Albumin/Globulin Ratio 1.3 I & O for Last 24 hours: Intake & Output 06/19/21 06/20/21 06/21/21 06/22/21 23:59 23:59 23:59 23:59 Intake Total 480 / 600 840 / 840 420 / 420 240 / 240 Output Total 300 / 300 350 / 350 0 / 0 0 / 0 Balance 180 / 300 490 / 490 420 / 420 240 / 240 Weight 70.035 kg 69.626 kg 68.62 kg 68.6 kg Assessment and Plan (1) Elevated troponin Status: Acute Category: Medical Code(s): R77.8 - Other specified abnormalities of plasma proteins (2) Pneumonia due to COVID-19 virus Status: Acute Category: Medical Code(s): U07.1 - COVID-19; J12.82 - Pneumonia due to coronavirus disease 2019 (3) Respiratory failure with hypoxia Status: Acute Qualifiers: Chronicity: acute Qualified Code(s): J96.01 - Acute respiratory failure with hypoxia Category: Medical Code(s): J96.91 - Respiratory failure, unspecified with hypoxia The patient's infection will respond to the chosen ABx?: Yes Is the patient receiving the right drug, dose, and route?: Yes Could a more targeted ABx be ordered?: No
[2021-06-22 11:37] VITALS: BP 128/67; PULSE 65; RESP 21; TEMP 36.6; O2SAT 96
--- NOTE | 2021-06-22 12:59 | HMH.DCSUM ---
General - General Admission date:: 06/15/21 Discharge date: 06/22/21 HPI HPI: Patient states that she has Covid pneumonia, diagnosed on Friday at [facility]. She says that she first started getting chest congestion around 06/02/2021. She has a slight cough. She had increasing dyspnea on exertion. She says she was found to be hypoxic. She says she was kept in the emergency room for several hours had an extensive work-up excluding a CT angiogram of her chest. She says they do not have any beds in the hospital and eventually discharged her home on nasal cannula oxygen 3L and steroids. She says that she called her primary care doctor in [place] after she was discharged from [facility] emergency room and they told her to go to the emergency department at [facility], but she says she felt pretty good at that time and did not do so. Since then she says that her pulse ox is dropping precipitously whenever she gets up and walks around. Family has increased FiO2 up to 8 L nasal cannula She is not vaccinated against Covid. She is a non-smoker. She has no chronic medical problems and is not chronically on medication. Workup in the ER included imaging studies FINDINGS: The cardiomediastinal silhouette and pulmonary vascularity are within normal limits. Multifocal bilateral pneumonia noted along with atelectatic changes in the lower lobes. No obvious effusions No acute bony abnormalities. IMPRESSION: Bilateral pneumonia with atelectatic changes consistent with Covid19 pneumonia the Dictated by: Lenard De Jesus MD 06/15/2021 09:48 Lenard De Jesus MD in [facility] 06/15/2021 09:48 - CT Data CT Scan: Chest (CTA) Time Received: 10:[address] Reviewed: Yes: I have viewed the radiologist's interpretation Findings Narrative: PROCEDURE: CT ANGIO CHEST PE PROTOCOL CLINCIAL INDICATION: covid hypoxia r/o PE COMPARISON: CT SPLUMBWO CT lumbar spine wo con from 01/09/2019 CR XR CHEST PORTABLE from 06/15/2021 TECHNIQUE: IV Contrast: 70ML Isovue 370 Axial images obtained with sagittal and coronal reformats. All CT scans at the facility use one or more dose reduction, viz: automated exposure control, ma/kV adjustment per patient size (including targeted exams where dose is matched to indication, i.e. head), or iterative reconstruction technique. FINDINGS: HEART AND MEDIASTINAL STRUCTURES: No evidence of pulmonary embolus, aortic aneurysm, or aortic dissection. There are few small mediastinal and hilar lymph nodes. LUNGS AND PLEURAL SPACES: Diffuse multifocal bilateral areas of ground-glass density with associated consolidation and atelectatic change consistent with Covid19 pneumonia. No evidence of pneumothorax. Trace bilateral effusions. Airspace disease could easily obscure an underlying nodule. No obvious endobronchial lesion. BONY STRUCTURES: Degenerative changes thoracic spine. UPPER ABDOMEN: Unremarkable. ADDITIONAL FINDINGS: Cortical scarring of the left kidney IMPRESSION: No evidence of pulmonary embolus, aortic aneurysm, or aortic dissection. Multifocal bilateral ground-glass infiltrates with scattered areas of consolidation and atelectasis consistent with Covid19 pneumonia with trace bilateral effusions. She is admitted for further evaluation and treatment Hospital Course Hospital Course: 06/15/21 CXR: FINDINGS: The cardiomediastinal silhouette and pulmonary vascularity are within normal limits. Multifocal bilateral pneumonia noted along with atelectatic changes in the lower lobes. No obvious effusions No acute bony abnormalities. IMPRESSION: Bilateral pneumonia with atelectatic changes consistent with Covid19 pneumonia the Dictated by: Lenard De Jesus MD 06/15/21 Chest CTA: FINDINGS: HEART AND MEDIASTINAL STRUCTURES: No evidence of pulmonary embolus, aortic aneurysm, or aortic dissection. There are few small mediastinal and hil
--- NOTE | 2021-06-22 13:47 | SW/DCPLANNER ---
The plan for this patient is to discharge home today. Patient is currently established with [facility] for home O2 and concentrator. I spoke with patients sister (Meli) regarding portable O2 tank: has confirmed that patients family will have a portable O2 tank with them when they transport patient home. Patient will discharge home today.
--- NOTE | 2021-06-22 15:25 | PC.NURSE ---
PT IS READY TO BE DISCHARGED. O2 SATURATION HAS MAINTAINED 90-94% ON ROOM AIR SINCE 1300. PT HAS BEEN AMBULATING TO THE BATHROOM AND AROUND THE ROOM. PT STATES SHE ALREADY HAS HOME OXYGEN. PT WILL HAVE FOLLOW UP APPOINTMENTS WITH , PULMONOLOGY AND CARDIOLOGY. PFT TEST SCHEDULED.
== END 2021-06-22 15:28 | disposition home or self-care (01) | DRG 177 ==
LOC: ER 10:59 → 2ND 12:00
PROVIDERS: Internal Medicine Pulmonary Disease; Nurse Practitioner Family; Admitting Provider Family Medicine; Emergency Provider Emergency Medicine; Visit Provider Family Medicine
DX: U07.1 COVID-19 (principal); J12.82 Pneumonia due to coronavirus disease 2019; J96.01 Acute respiratory failure with hypoxia; R77.8 Other specified abnormalities of plasma proteins; R79.89 Other specified abnormal findings of blood chemistry
CPT/HCPCS: 36415; 71045; 71275; 80048; 80053; 80076; 82728; 83605; 84145; 84484; 85007; 85025; 85378; 85651; 86140; 87040; 87070; 87205; 93005; 93306; 94640; 94760; 94761; 96365; 96375; 99285; C9803; J0456; J0696; Q9967; U0003; U0005